=== PATIENT | female | born 1940 | race Two or more races ===

== ENCOUNTER 2019-07-23 11:38 | Emergency (ER) | payer MEDICARE, OTHER, SELFPAY ==
--- NOTE | ~2019-07-23 | XR_ITS ---
[[id number] ] INDICATION: Right rib pain after recent fall TECHNIQUE: Frontal projection of the upper right ribs, frontal projection of the lower right ribs, ob lique projection of all the right ribs, frontal inspiratory chest x-ray for interpretation. FINDINGS: There are no displaced rib fractures identified. There are no soft tissue abnormality see n. The lungs are clear. There is dextroscoliosis of the spine at the thoracolumbar junction. There are advanced degenerative changes of the shoulders. IMPRESSION: 1:No displaced rib fractures. Reviewed, dictated and finalized at location A.
[2019-07-23 11:47] VITALS: BP 143/77; PULSE 66; RESP 16; TEMP 36.6; O2SAT 98
--- NOTE | 2019-07-23 12:59 | ED.GENADULT ---
HPI - General Adult General Chief complaint: Fall Stated complaint: rib pain Time Seen by Provider: 07/23/19 12:59 Source: patient and RN notes reviewed Mode of arrival: ambulatory Limitations: no limitations History of Present Illness HPI narrative: 79-year-old female presents with complaint of right lateral rib cage pain status post fall for the past 14 days. Kamilla says she fell at home and did not seek treatment until now. Tylenol at home last this morning @10:30 with some relief. Denies difficulty breathing or cough. Denies hitting head or loss consciousness. No bruising area. No deformity. Exacerbating factors consist of taking a deep breath. Relieving factor consist of taking Tylenol and resting. Denies fever or chills. No cardiac chest pain, wheezing, or shortness of breath. Denies syncopal, abdominal pain, nausea, and vomiting. Tolerating po intake well. Remains active. Some parts of this dictation were generated by voice recognition software and may contain typographical and/or grammatical inaccuracies. Related Data Home Medications Medication Instructions Recorded Confirmed [place]-3 05/25/19 alendronate [Fosamax] 70 mg PO WEEKLY 05/25/19 05/25/19 amlodipine 5 mg PO DAILY 05/25/19 05/25/19 bimatoprost 1 drp OPHTHALMIC (EYE) DAILY 05/25/19 05/25/19 calcium carbonate [Calcium 500] 500 mg PO BID 05/25/19 05/25/19 cetirizine 5 mg PO DAILY 05/25/19 05/25/19 cyclosporine [Restasis] 1 drp OPHTHALMIC (EYE) Q12H 05/25/19 05/25/19 meloxicam 7.5 mg PO DAILY 05/25/19 05/25/19 multivitamin with minerals [Daily 1 tablet PO DAILY 05/25/19 05/25/19 Multivitamin-Minerals] levothyroxine 75 mcg tablet 75 mcg PO DAILY 05/26/19 Allergies Allergy/AdvReac Type Severity Reaction Status Date / Time codeine Allergy Unknown Other Verified 05/25/19 12:09 temazepam Allergy Unknown Rash Verified 05/25/19 12:09 Review of Systems Review of Systems: Narrative: CONSTITUTIONAL: Denies fever, chills, sweats. EYES: Denies visual changes, redness, discharge. ENT: Denies rhinorrhea, congestion, sore throat, otalgia. CARDIOVASCULAR: Denies chest pain, palpitations, edema. RESPIRATORY: Denies dyspnea, wheezing, cough. GASTROINTESTINAL: Denies abdominal pain, nausea, vomiting, diarrhea. GENITOURINARY: Denies dysuria, hematuria, abnormal discharge. SKIN: Denies rash or itching. MUSCULOSKELETAL: Denies acute back pain, joint pain. Complains of acute right lateral rib cage tenderness, myalgia. NEUROLOGIC: Denies numbness or focal weakness. PSYCHIATRIC: Denies anxiety or depression. All systems reviewed & are unremarkable except as noted in HPI and below. [facility] Past Medical History Medical History Anxiety Depression Essential (primary) hypertension Hyperlipidemia Hypothyroid Lump of left breast Memory change OAB (overactive bladder) Osteoporosis Surgical History Surgical History History of surgery on right wrist (~2003) Family History Family History Mother Family history of coronary artery disease Family history of cardiovascular disease, Onset Age: 71 Social History Social History (Updated 07/23/19 @ 13:05 by JONAS Scales) Smoking status: Never smoker Second hand tobacco smoke exposure: No Alcohol intake: never Substance use: never Living arrangements: alone Occupation/Education: retired Gender identity (if verbalized by the patient): Female Comments At time of signature, agree with nurse past medical, surgical, social, and family history. There is no relevant family history pertinent to the presenting complaint. Exam Narrative: Exam Narrative: GENERAL: This is a well-nourished, well-developed patient, in no apparent distress. Talks in full sentences and ambulates with steady gait without dyspnea. HEAD: normoceph
== END 2019-07-23 13:15 | disposition home or self-care (01) ==
PROVIDERS: Emergency Provider Nurse Practitioner Family; PCP Family Medicine
DX: S20.211A Contusion of right front wall of thorax, initial encounter (principal); W19.XXXA Unspecified fall, initial encounter; I10 Essential (primary) hypertension; E78.5 Hyperlipidemia, unspecified; E03.9 Hypothyroidism, unspecified; M81.0 Age-related osteoporosis without current pathological fracture
CPT/HCPCS: 71101; 99213; G0463

== ENCOUNTER 2019-09-04 10:54 | Outpatient (CLI) | payer MEDICARE, OTHER, SELFPAY ==
[2019-09-04 11:19] LABS: Hematocrit 41.6 % (37.0-47.0); Hemoglobin 13.9 g/dL (12.0-15.0); Mean Corpuscular HGB Conc 33.4 g/dl (32-36); Mean Corpuscular Hemoglobin 31.1 pg (26-34); Mean Corpuscular Volume 93.1 fl (80-100); Mean Platelet Volume 9.3 fl (7.4-10.4); Platelet Count Result 150 k/mm3 (150-375); Red Blood Count 4.47 M/mm3 (4.2-5.4); Red Cell Distribution Width 13.1 % (11.5-14.5)
[2019-09-04 11:49] LABS: LDL Cholesterol Direct 112 mg/dL
[2019-09-04 12:25] LABS: Alanine Aminotransferase 26 U/L (4-35); Albumin Level 4.4 g/dL (3.5-5.1); Alkaline Phosphatase 91 U/L (38-126); Aspartate Amino Transferase 36 U/L (14-36); Bilirubin,Total 0.3 mg/dL (0.2-1.3); Blood Urea Nitrogen 22 mg/dL (7-17); Calcium 9.2 mg/dL (8.4-10.2); Carbon Dioxide 28 mmol/L (22-30); Chloride 104 mmol/L (98-107); Cholesterol 189 mg/dL (0-200); Estimated Glomerular Filt Rate > 60; Glucose 108 mg/dL (65-105); Potassium 3.8 mmol/L (3.4-5.0); Sodium 139 mmol/L (137-145); Triglycerides 128 mg/dL (<150)
[2019-09-04 12:26] LABS: HDL Direct 41 mg/dL
== END 2019-09-04 10:55 | disposition home or self-care (01) ==
PROVIDERS: PCP Family Medicine; Visit Provider Nurse Practitioner Family
DX: I10 Essential (primary) hypertension (principal); R20.2 Paresthesia of skin
CPT/HCPCS: 36415; 80053; 80061; 82607; 85027

== ENCOUNTER 2019-09-12 13:50 | Outpatient (CLI) | payer MEDICARE, OTHER, SELFPAY ==
--- NOTE | ~2019-09-12 | MR_ITS ---
EXAMINATION: MR shoulder LT wo con DATE: 09/12/2019 14:54 INDICATION: Paresthesias of skin. Left upper and pain and numbness. TECHNIQUE: Magnetic resonance imaging (MRI) of the left shoulder was performed without intravenous co ntrast. Sequences included axial PD-weighted FS FSE, coronal oblique PD-weighted FS FSE and T2-weight ed FS FSE, and sagittal oblique T2-weighted FS FSE and T1-weighted FSE. COMPARISON: None. FINDINGS: Coracoacromial arch: The acromion undersurface is curved in morphology with anterior hook (type III). There is moderate ac romioclavicular joint osteoarthritis. There is severe subacromial/subdeltoid bursitis. Rotator cuff: There is an articular-sided partial-thickness tear of supraspinatus and infraspinous tendons measurin g 9 mm anterior to posterior by 16 mm proximal to distal by up to 70% tendon thickness. Teres minor t endon is normal. There is moderate subscapularis tendinopathy. There is fluid around the infraspinatu s muscle belly with increased signal at the myotendinous junction, consistent with mild (grade 1) str ain. There is mild fatty atrophy of supraspinatus and subscapularis muscle bellies. Biceps tendon and glenoid labrum: Biceps tendon is in bicipital groove. There is a partial tear of intra-articular biceps tendon. There is maceration of the glenoid labrum. Fluid: There is a small glenohumeral joint effusion. Bones/cartilage: There is extensive full-thickness cartilage loss of humeral head and glenoid with bone volume loss of humeral head and glenoid, subchondral cysts, and osteophytes. IMPRESSION: 1. Advanced glenohumeral joint osteoarthritis. 2. Partial-thickness, articular-sided tear of supraspinatus and infraspinatus tendons. Mild (grade 1) infraspinatus muscle strain. 3. Severe subacromial/subdeltoid bursitis. 4. Small glenohumeral joint effusion. 5. Partial tear of intra-articular biceps tendon. Reviewed, dictated and finalized at location A. IMPRESSION: 1. Advanced glenohumeral joint osteoarthritis. 2. Partial-thickness, articular-sided tear of supraspinatus and infraspinatus t endons. Mild (grade 1) infraspinatus muscle strain. 3. Severe subacromial/subdeltoid bursitis. 4. Small glenohumeral joint effusion. 5. Partial tear of intra-articular biceps tendon.
== END 2019-09-12 13:51 | disposition home or self-care (01) ==
PROVIDERS: PCP Family Medicine; Visit Provider Nurse Practitioner Family
DX: R20.2 Paresthesia of skin (principal); M19.012 Primary osteoarthritis, left shoulder; M75.112 Incomplete rotator cuff tear or rupture of left shoulder, not specified as traumatic; M75.52 Bursitis of left shoulder; M25.412 Effusion, left shoulder; S46.212A Strain of muscle, fascia and tendon of other parts of biceps, left arm, initial encounter
CPT/HCPCS: 73221

== ENCOUNTER 2019-12-05 12:24 | Outpatient (CLI) | payer MEDICARE, OTHER, SELFPAY ==
--- NOTE | ~2019-12-05 | MM_ITS ---
EXAMINATION: MM diagnostic richard LT w leonardo HISTORY: Follow-up left breast asymmetry TECHNIQUE: Additional 3-D tomosynthesis images of the left breast were performed and synthetic 2-D im ages were generated. CAD analysis was submitted and interpreted. COMPARISON: Comparison to multiple prior studies sequentially, with oldest reviewed study dated 01/08. BREAST PARENCHYMAL COMPOSITION: BREAST PARENCHYMAL COMPOSITION: There are scattered areas of fibroglandular density. FINDINGS: Focal asymmetry in the upper outer quadrant of the left breast is not significantly changed . There are benign-appearing left breast calcifications. There is a tissue marker in the upper outer quadrant from previous benign biopsy. IMPRESSION: 1. Stable left breast asymmetry, likely benign. 2. Recommend 6 month follow-up diagnostic bilateral mammogram BI-RADS category 3, probably benign findings. Reviewed, dictated and finalized at location A.
== END 2019-12-05 12:25 | disposition home or self-care (01) ==
PROVIDERS: PCP Family Medicine; Visit Provider Nurse Practitioner Family
DX: N60.02 Solitary cyst of left breast (principal); R92.8 Other abnormal and inconclusive findings on diagnostic imaging of breast
CPT/HCPCS: 77061; 77065; G0279

== ENCOUNTER 2020-01-26 13:51 | Outpatient (CLI) | payer MEDICARE, OTHER, SELFPAY ==
--- NOTE | ~2020-01-26 | XR_ITS ---
XR scoliosis survey DATE: 01/26/2020 14:31 INDICATION: Scoliosis TECHNIQUE: Standing AP and lateral views. Breast poole. COMPARISON: None FINDINGS: 11 degrees dextroscoliosis from T3 T7. 19 degrees levoscoliosis from T7 to T12. 50 degrees rotatory dextroscoliosis from T12 to L4. The left femoral head is 2.8 cm higher than the right femoral head. Diffuse osteopenia. There is particularly prominent degenerative disc disease of the cervical spine from C3-4 through C5- 6, moderate degenerative disc disease at C6-7. There is degenerative spurring of the thoracic and lumbar spine. The sacroiliac joints are intact. Prominent osteoarthritis at the glenohumeral joints. There is rotator cuff atrophy on the right. IMPRESSION: 11 degrees dextroscoliosis from T3 T7. 19 degrees levoscoliosis from T7 to T12. 50 degrees rotatory dextroscoliosis from T12 to L4 Reviewed, dictated and finalized at Location A. Reviewed, dictated and finalized at location A.
== END 2020-01-26 13:52 | disposition home or self-care (01) ==
LOC: ANHIMG 13:57
PROVIDERS: PCP Family Medicine; Visit Provider Family Medicine
DX: R26.89 Other abnormalities of gait and mobility (principal); M41.84 Other forms of scoliosis, thoracic region
CPT/HCPCS: 72082

== ENCOUNTER 2020-03-05 09:31 | Outpatient (CLI) | payer MEDICARE, OTHER, SELFPAY ==
[2020-03-05 09:52] LABS: Basophils Absolute Auto 0.1 K/mm3 (0.0-0.1); Basophils Percent Auto 1.1 % (0.2-1.2); Eosinophils Absolute Auto 0.1 K/mm3 (0-0.3); Eosinophils Percent Auto 2.2 % (0-4.4); Hemoglobin 14.3 g/dL (12.0-15.0); Immature Granulocyte Absolute 0.02 K/mm3 (0.00-0.031); Immature Granulocyte Percent A 0.4 % (0-0.5); Lymphocytes Absolute Auto 1.84 K/mm3 (0.9-3.2); Mean Corpuscular Hemoglobin 32.1 pg (26-34); Mean Corpuscular Volume 94.4 fl (80-100); Mean Platelet Volume 9.5 fl (7.4-10.4); Monocytes Absolute Auto 0.4 K/mm3 (0.1-0.6); Monocytes Percent Auto 8.1 % (2.6-8.5); Neutrophils Absolute Auto 2.9 K/mm3 (1.3-6.7); Neutrophils Percent Auto 54.2 % (45.5-73.1); Platelet Count Result 142 k/mm3 (150-375); Red Blood Count 4.45 M/mm3 (4.2-5.4); Red Cell Distribution Width 12.6 % (11.5-14.5); White Blood Count 5.4 K/mm3 (4.5-10.0)
[2020-03-05 10:04] LABS: Alanine Aminotransferase 28 U/L (4-35); Albumin Level 4.7 g/dL (3.5-5.1); Alkaline Phosphatase 96 U/L (38-126); Anion Gap 10 mmol/L (8-16); Aspartate Amino Transferase 38 U/L (14-36); Bilirubin,Total 0.3 mg/dL (0.2-1.3); Blood Urea Nitrogen 19 mg/dL (7-17); Calcium 9.8 mg/dL (8.4-10.2); Carbon Dioxide 28 mmol/L (22-30); Chloride 104 mmol/L (98-107); Cholesterol 197 mg/dL (0-200); Estimated Glomerular Filt Rate > 60; Glucose 103 mg/dL (65-105); HDL Direct 49 mg/dL; Potassium 4.1 mmol/L (3.4-5.0); Sodium 142 mmol/L (137-145); Triglycerides 155 mg/dL (<150)
[2020-03-05 10:15] LABS: LDL Cholesterol Direct 110 mg/dL
== END 2020-03-05 09:32 | disposition home or self-care (01) ==
LOC: ANHLAB 09:33
PROVIDERS: PCP Family Medicine; Visit Provider Family Medicine
DX: E78.5 Hyperlipidemia, unspecified (principal); I10 Essential (primary) hypertension; E03.9 Hypothyroidism, unspecified; Z00.00 Encounter for general adult medical examination without abnormal findings
CPT/HCPCS: 36415; 80053; 80061; 84443; 85025

== ENCOUNTER 2020-05-10 21:40 | Emergency (ER) | payer MEDICARE, OTHER, SELFPAY ==
--- NOTE | ~2020-05-10 | CT_ITS ---
EXAMINATION: CT brain wo con EXAM DATE: 05/10/2020 22:48 INDICATION: Fall, head injury, laceration. TECHNIQUE: Spiral CT of the head was performed without contrast. Axial, coronal and sagittal images were reviewed. The dose-length product (DLP) for this examination was 605.33 mGy-cm. The exposure w as tailored according to patient size, and iterative reconstruction (ASIR) was used as additional dos e reduction technique. Comparison is made to prior examination from 12/06/2008. FINDINGS: There is no acute intraparenchymal hemorrhage. No evidence of intraparenchymal brain mass lesion. No evidence of acute infarction. Please note that initial head CT has limited sensitivity f or small or acute infarctions. There is moderate periventricular and subcortical hypodensity, nonspec ific but probably related to small vessel ischemic disease. There is moderate prominence of the sul ci and ventricles related to cerebral atrophy. There is intracranial carotid arteriosclerosis. The re are no extra-axial collections. There is no mass effect or midline shift. Patient has had bilate ral ocular lens surgery. Left-sided scalp laceration and contusion. The visualized sinuses and masto id air cells are well aerated. IMPRESSION: 1. No acute intracranial findings. 2. Chronic age related findings. 3. Left-sided scalp laceration, contusion. Reviewed, dictated and finalized at location A. [employer]
[2020-05-10 21:49] VITALS: BP 149/69; PULSE 64; RESP 16; TEMP 36.3; O2SAT 95
--- NOTE | 2020-05-10 22:08 | ED.FALL ---
HPI - Fall General Chief Complaint: Fall Stated Complaint: head lac Time Seen by Provider: 05/10/20 22:07 History of Present Illness HPI Narrative: 80 yo female presents from home for falls. She reports that she fell twice this evening at home. In the second fall she struck the back of her head and sustained a significant laceration to the scalp. She believes that she was falling due to taking Trazodone. Related Data Home Medications Medication Instructions Recorded Confirmed [place]-3 05/25/19 04/22/20 bimatoprost 1 drp OPHTHALMIC (EYE) DAILY 05/25/19 04/22/20 cyclosporine [Restasis] 1 drp OPHTHALMIC (EYE) Q12H 05/25/19 04/22/20 multivitamin with minerals [Daily 1 tablet PO DAILY 05/25/19 04/22/20 Multivitamin-Minerals] calcium carbonate 600 mg calcium 1,200 mg PO DAILY tablet 03/04/20 04/22/20 (1,500 mg) tablet cholecalciferol (vitamin D3) 25 25 mcg PO DAILY 03/04/20 04/22/20 mcg (1,000 unit) tablet levothyroxine 75 mcg tablet 75 mcg PO DAILY 03/04/20 04/22/20 cetirizine 10 mg capsule 10 mg PO DAILY cap 04/22/20 04/22/20 clonazepam 0.5 mg tablet 0.5 mg PO DAILY PRN 04/22/20 04/22/20 Allergies Allergy/AdvReac Type Severity Reaction Status Date / Time codeine Allergy Unknown Other Verified 04/22/20 13:13 temazepam Allergy Unknown Rash Verified 04/22/20 13:13 Review of Systems Review of Systems: All systems reviewed & are unremarkable except as noted in HPI and below Constitutional: Constitutional: Denies fever(s) and Denies weakness Eyes: Eyes: Denies change in vision ENT: Denies dizziness Cardiovascular: Cardiovascular: Denies chest pain Respiratory: Respiratory: Denies dyspnea Gastrointestinal: Gastrointestinal: Denies nausea Musculoskeletal: Musculoskeletal: Denies back pain Neurologic: Denies confusion, Denies dizziness, Denies numbness and Denies weakness Hematologic/Lymphatic: Hematologic/Lymphatic: Denies easy bleeding and Denies easy bruising PMFSH Past Medical History Medical History Anxiety Depression Essential (primary) hypertension Hyperlipidemia Hypothyroid Insomnia Lump of left breast Memory change OAB (overactive bladder) Osteoporosis Surgical History Surgical History History of surgery on right wrist (~2003) Family History Family History Mother Family history of coronary artery disease Family history of cardiovascular disease, Onset Age: 71 Social History Social History Smoking status: Never smoker Second hand tobacco smoke exposure: No Alcohol intake: never Substance use: never Gender identity (if verbalized by the patient): Female Exam Const: General: no acute distress and alert Orientation/consciousness: patient oriented x3 HENMT: Head: laceration (10 cm posterior scalp) Eyes: Pupils: Equal, round and reactive pupils present Neck: Neck: normal visual inspection Resp: Effort & Inspection: normal respiratory effort Auscultation: clear to auscultation bilaterally Cardio: Rate: regular rate Rhythm: regular rhythm Skin: General skin exam: normal color Neuro: General: patient oriented x3, moves all extremities, no focal motor deficits and CN's II-XI intact bilaterally Speech: normal speech Gait exam (Neuro): Normal gait present Extrem: General: normal to inspection Course Vital Signs Vital signs: Vital Signs Temperature 36.3 C L 05/10/20 21:49 Pulse Rate 64 05/10/20 21:49 Respiratory Rate 16 05/10/20 21:49 Blood Pressure 149/69 H 05/10/20 21:49 Pulse Oximetry 95 05/10/20 21:49 Temperature 36.6 C 05/10/20 23:53 Pulse Rate 57 L 05/10/20 23:53 Respiratory Rate 16 05/10/20 23:53 Blood Pressure 185/92 H 05/10/20 23:53 Pulse Oximetry 98 05/10/20 23:53 Procedur
[2020-05-10] MEDS: LIDO 1%/EPINEPHRINE 1:100,000 20 ML VIAL INFILTRATE (23:49)
[2020-05-10 23:53] VITALS: BP 185/92; PULSE 57; RESP 16; TEMP 36.6; O2SAT 98
== END 2020-05-10 23:59 | disposition home or self-care (01) ==
PROVIDERS: Emergency Provider Emergency Medicine; PCP Family Medicine
DX: S01.01XA Laceration without foreign body of scalp, initial encounter (principal); I10 Essential (primary) hypertension; E78.5 Hyperlipidemia, unspecified; E03.9 Hypothyroidism, unspecified; M81.0 Age-related osteoporosis without current pathological fracture; N32.81 Overactive bladder; F41.9 Anxiety disorder, unspecified; F32.9 Major depressive disorder, single episode, unspecified; W19.XXXA Unspecified fall, initial encounter
CPT/HCPCS: 12004; 70450; 99284

== ENCOUNTER 2020-06-08 12:29 | Emergency (ER) | payer MEDICARE, OTHER, SELFPAY ==
[2020-06-08 12:45] VITALS: BP 146/75; PULSE 61; RESP 16; TEMP 36.6; O2SAT 97
[2020-06-08 12:46] VITALS: BP 146/75; PULSE 61; RESP 16; TEMP 36.6; O2SAT 97
--- NOTE | 2020-06-08 13:02 | ED.GENADULT ---
HPI - General Adult General Chief complaint: Urogenital-Female Stated complaint: POS UTI Source: patient Mode of arrival: ambulatory Limitations: no limitations History of Present Illness HPI narrative: Patient presents for evaluation of urinary symptoms. Symptom onset yesterday. She reports urinary frequency, hesitancy, and incomplete emptying. She denies any abdominal pain, fever, chills, nausea, vomiting. She has chronic low back pain, not worse as of late. She has had these symptoms in the past with a urinary tract infection. She is not diabetic. No additional complaints or concerns. Related Data Home Medications Medication Instructions Recorded Confirmed [place]-3 05/25/19 05/22/20 bimatoprost 1 drp OPHTHALMIC (EYE) DAILY 05/25/19 05/22/20 cyclosporine [Restasis] 1 drp OPHTHALMIC (EYE) Q12H 05/25/19 05/22/20 multivitamin with minerals [Daily 1 tablet PO DAILY 05/25/19 05/22/20 Multivitamin-Minerals] calcium carbonate 600 mg calcium 1,200 mg PO DAILY tablet 03/04/20 05/22/20 (1,500 mg) tablet cholecalciferol (vitamin D3) 25 25 mcg PO DAILY 03/04/20 05/22/20 mcg (1,000 unit) tablet levothyroxine 75 mcg tablet 75 mcg PO DAILY 03/04/20 05/22/20 cetirizine 10 mg capsule 10 mg PO DAILY cap 04/22/20 05/22/20 Allergies Allergy/AdvReac Type Severity Reaction Status Date / Time codeine Allergy Unknown Other Verified 05/22/20 11:16 temazepam Allergy Unknown Rash Verified 05/22/20 11:16 clonazepam Allergy Unknown Verified 06/08/20 12:46 zolpidem [From Ambien] Allergy Unknown Verified 06/08/20 12:46 Review of Systems Review of Systems: Narrative: CONSTITUTIONAL: Denies fever, chills, or sweats. EYES: Denies visual changes, redness, or discharge. ENT: Denies rhinorrhea, congestion, sore throat, or otalgia. CARDIOVASCULAR: Denies chest pain, palpitations, or edema. RESPIRATORY: Denies cough or dyspnea. GASTROINTESTINAL: Denies abdominal pain, nausea, vomiting, or diarrhea. GENITOURINARY: Reports urinary hesitancy, incomplete emptying, frequency. Denies dysuria. SKIN: Denies rash or itching. MUSCULOSKELETAL: Denies back pain, joint pain, or myalgia. NEUROLOGIC: Denies headache, numbness, dizziness, or weakness. PSYCHIATRIC: Denies anxiety or depression. [facility] Past Medical History Medical History Anxiety Depression Essential (primary) hypertension Hyperlipidemia Hypothyroid Insomnia Lump of left breast Memory change OAB (overactive bladder) Osteoporosis Surgical History Surgical History History of surgery on right wrist (~2003) Family History Family History Mother Family history of coronary artery disease Family history of cardiovascular disease, Onset Age: 71 Social History Social History Smoking status: Never smoker Second hand tobacco smoke exposure: No Alcohol intake: never Substance use: never Gender identity (if verbalized by the patient): Female Exam Narrative: Exam Narrative: GENERAL: Well-appearing, well-nourished, and in no acute distress. HEAD: Normocephalic, atraumatic. EYES: PERRLA and EOMI. ENT: Nares clear, no rhinorrhea or epistaxis. Mucous membranes moist. Oropharynx without tonsillar hypertrophy exudate or other lesions. Bilateral TMs pearly masterson nonbulging NECK: Supple. No adenopathy or masses. No carotid bruits or JVD CHEST: Clear to auscultation. No respiratory distress. No wheezes rales or rhonchi HEART: Regular rate and rhythm. No murmur heard. Normal peripheral pulses. ABDOMEN: Soft, nondistended, normal active bowel sounds. No abdominal tenderness. No CVA tenderness. EXTREMITIES: Normal range of motion. No edema. SKIN: Warm, dry, no rash. NEURO: No focal deficits. Alert and oriented x3. PSYCH: Normal m
== END 2020-06-08 14:19 | disposition home or self-care (01) ==
PROVIDERS: Emergency Provider Nurse Practitioner; PCP Family Medicine
DX: N30.01 Acute cystitis with hematuria (principal); I10 Essential (primary) hypertension; E78.5 Hyperlipidemia, unspecified; E03.9 Hypothyroidism, unspecified; M81.0 Age-related osteoporosis without current pathological fracture
CPT/HCPCS: 81003; 87077; 87086; 87088; 87186; 99213; G0463

== ENCOUNTER 2020-08-15 11:46 | Emergency (ER) | payer MEDICARE, OTHER, SELFPAY ==
--- NOTE | 2020-08-15 12:03 | ED.DENTAL ---
HPI - Dental/Oral General Chief complaint: Dental/Oral Stated complaint: mouth dry Time Seen by Provider: 08/15/20 12:04 Source: patient Mode of arrival: ambulatory Limitations: no limitations History of Present Illness HPI Narrative: Kamilla Crespo is an 80 yo female with a PMH of HTN osteopeia, zantac, hupothyroid, high cholesterol,urinary incontinence, comes to [facility] for complaints of dry mouth after receiving covid shot on 08/02. She is on somemeds that can cause dry moth but states she did not have it until the covid shot. Related Data Home Medications Medication Instructions Recorded Confirmed [place]-3 1 cap PO DAILY 05/25/19 08/15/20 bimatoprost 1 drp OPHTHALMIC (EYE) DAILY 05/25/19 08/15/20 cyclosporine [Restasis] 1 drp OPHTHALMIC (EYE) Q12H 05/25/19 08/15/20 multivitamin with minerals [Daily 1 tablet PO DAILY 05/25/19 08/15/20 Multivitamin-Minerals] calcium carbonate 600 mg calcium 1,200 mg PO DAILY tablet 03/04/20 08/15/20 (1,500 mg) tablet cholecalciferol (vitamin D3) 25 25 mcg PO DAILY 03/04/20 08/15/20 mcg (1,000 unit) tablet levothyroxine 75 mcg tablet 75 mcg PO DAILY 03/04/20 08/15/20 cetirizine 10 mg capsule 10 mg PO DAILY cap 04/22/20 08/15/20 Allergies Allergy/AdvReac Type Severity Reaction Status Date / Time codeine Allergy Unknown Other Verified 08/15/20 12:02 temazepam Allergy Unknown Rash Verified 08/15/20 12:02 clonazepam Allergy Unknown Verified 08/15/20 12:02 zolpidem [From Ambien] Allergy Unknown Verified 08/15/20 12:02 Review of Systems Review of Systems: Narrative: CONSTITUTIONAL: Denies fever, chills, sweats. EYES: Denies visual changes, redness, discharge. ENT: Denies rhinorrhea, congestion, sore throat, otalgia. CARDIOVASCULAR: Denies chest pain, palpitations, edema. RESPIRATORY: Denies dyspnea, wheezing, cough-dry mouth after Covid shot GASTROINTESTINAL: Denies abdominal pain, nausea, vomiting, diarrhea. GENITOURINARY: Denies dysuria, hematuria, abnormal discharge SKIN: Denies rash or itching. NEUROLOGIC: Denies numbness, or focal weakness. PSYCHIATRIC: Denies anxiety or depression. [facility] Past Medical History Medical History Anxiety Depression Essential (primary) hypertension Hyperlipidemia Hypothyroid Insomnia Lump of left breast Memory change OAB (overactive bladder) Osteoporosis Surgical History Surgical History History of surgery on right wrist (~2003) Family History Family History Mother Family history of coronary artery disease Family history of cardiovascular disease, Onset Age: 71 Social History Social History Smoking status: Never smoker Second hand tobacco smoke exposure: No Alcohol intake: never Substance use: never Gender identity (if verbalized by the patient): Female Comments At time of signature, I agree with nursing past medical, surgical, social and family history. There is no relevant family history pertinent to the presenting complaint. Exam Narrative: Exam Narrative: GENERAL: This is a well-nourished, well-developed patient, in mild distress. HEAD: normocephalic, atraumatic. EYES: Sclera clear/white. Vision is grossly intact. EARS: External ears normal. Hearing grossly intact. NOSE: External nose normal without nasal discharge, nares without redness, no rhinorrhea. THROAT: Mucous membranes appear dry, mild erythema, no cracking of lips NECK: Neck supple, non-tender CARDIOVASCULAR: Regular rate and rhythm without murmurs, gallops, or rubs. RESPIRATORY: Clear to auscultation. Breath sounds equal bilaterally. No wheezes, rales, or rhonchi. GASTROINTESTINAL: Abdomen soft, SKIN: warm, intact with no suspicious lesions or rash, good texture and turgor. NEURO: awake, alert, and oriented to
[2020-08-15 12:07] VITALS: BP 134/68; PULSE 68; RESP 16; TEMP 36.7; O2SAT 97
== END 2020-08-15 12:24 | disposition home or self-care (01) ==
PROVIDERS: Emergency Provider Nurse Practitioner; PCP Family Medicine
DX: R68.2 Dry mouth, unspecified (principal); F41.9 Anxiety disorder, unspecified; F32.9 Major depressive disorder, single episode, unspecified; I10 Essential (primary) hypertension; E78.5 Hyperlipidemia, unspecified; E03.9 Hypothyroidism, unspecified; M81.0 Age-related osteoporosis without current pathological fracture
CPT/HCPCS: 99213; G0463

== ENCOUNTER 2020-10-30 10:58 | Emergency (ER) | payer MEDICARE, OTHER, SELFPAY ==
[2020-10-30 11:05] VITALS: BP 158/85; PULSE 60; RESP 16; TEMP 36.9; O2SAT 98
--- NOTE | 2020-10-30 11:07 | ED.FEMALEGU ---
HPI - Female Genitourinary General Chief complaint: Urogenital-Female Stated complaint: uti symptoms Time Seen by Provider: 10/30/20 11:07 Source: patient, RN notes reviewed and old records reviewed Mode of arrival: ambulatory Limitations: no limitations History of Present Illness HPI Narrative: 80 year old female presents to [facility] with complaints of 1 week duration of pain with urination. Patient denies any associated pain to her lower back since having symptoms does have history of chronic lower back pain.Patient states some urgency, hesitancy and burning with urination, denies any suprapubic tenderness or any perineal discomfort. Patient admits to not drinking enough fluids lately denies any caffeine fluids daily such as coffee or tea or any carbonated beverages. Patient denies any nausea or vomiting or any diarrhea or constipation, denies any known fevers chills or sweats. MD elicited complaint: dysuria and UTI Pertinent past history: recurrent UTIs Onset (ago): week(s) (1) Vaginal discharge: none Vaginal bleeding: none Urinary symptoms: Dysuria Related Data Home Medications Medication Instructions Recorded Confirmed [place]-3 1 cap PO DAILY 05/25/19 08/21/20 bimatoprost 1 drp OPHTHALMIC (EYE) DAILY 05/25/19 08/21/20 cyclosporine [Restasis] 1 drp OPHTHALMIC (EYE) Q12H 05/25/19 08/21/20 multivitamin with minerals [Daily 1 tablet PO DAILY 05/25/19 08/21/20 Multivitamin-Minerals] calcium carbonate 600 mg calcium 1,200 mg PO DAILY tablet 03/04/20 08/21/20 (1,500 mg) tablet cholecalciferol (vitamin D3) 25 25 mcg PO DAILY 03/04/20 08/21/20 mcg (1,000 unit) tablet cetirizine 10 mg capsule 10 mg PO DAILY cap 04/22/20 08/21/20 Allergies Allergy/AdvReac Type Severity Reaction Status Date / Time codeine Allergy Unknown Other Verified 08/21/20 10:10 temazepam Allergy Unknown Rash Verified 08/21/20 10:10 clonazepam Allergy Unknown Verified 08/21/20 10:10 zolpidem [From Ambien] Allergy Unknown Verified 08/21/20 10:10 Review of Systems Review of Systems: Narrative: CONSTITUTIONAL: Denies fever, chills, or sweats. EYES: Denies visual changes, redness, or discharge. ENT: Denies rhinorrhea, congestion, sore throat, or otalgia. CARDIOVASCULAR: Denies chest pain, palpitations, or edema. RESPIRATORY: Denies cough or dyspnea. GASTROINTESTINAL: Denies abdominal pain, nausea, vomiting, or diarrhea. GENITOURINARY: Reports dysuria no visible hematuria, denies any suprapubic or perineal pain. SKIN: Denies rash or itching. MUSCULOSKELETAL: chronic lower back pain, joint pain, or myalgia. NEUROLOGIC: Denies headache, numbness, or weakness. PSYCHIATRIC: Positive history of anxiety or depression. All systems reviewed & are unremarkable except as noted in HPI and below PMFSH Past Medical History Medical History Anxiety Depression Essential (primary) hypertension Hyperlipidemia Hypothyroid Insomnia Lump of left breast Memory change OAB (overactive bladder) Osteoporosis Surgical History Surgical History History of surgery on right wrist (~2003) Family History Family History Mother Family history of coronary artery disease Family history of cardiovascular disease, Onset Age: 71 Social History Social History Smoking status: Never smoker Second hand tobacco smoke exposure: No Alcohol intake: never Substance use: never Gender identity (if verbalized by the patient): Female Comments At time of signature, agree with nursing past medical, surgical, social and family history. There is no relevant family history pertinent to the presenting complaint Exam Narrative: Exam Narrative: GENERAL: Well-appearing, well-nourished, and in no acute distress. HEAD: Normocephalic, atraumatic. E
== END 2020-10-30 12:46 | disposition home or self-care (01) ==
PROVIDERS: Emergency Provider Registered Nurse; PCP Family Medicine
DX: N39.0 Urinary tract infection, site not specified (principal); I10 Essential (primary) hypertension; E78.5 Hyperlipidemia, unspecified; E03.9 Hypothyroidism, unspecified; M81.0 Age-related osteoporosis without current pathological fracture
CPT/HCPCS: 81003; 87077; 87086; 87186; 99213; G0463

== ENCOUNTER 2021-02-27 11:54 | Outpatient (CLI) | payer MEDICARE, OTHER, SELFPAY ==
[2021-02-27 12:15] LABS: Basophils Percent Auto 0.6 % (0.2-1.2); Eosinophils Absolute Auto 0.1 K/mm3 (0-0.3); Eosinophils Percent Auto 1.5 % (0-4.4); Hematocrit 44.1 % (37.0-47.0); Hemoglobin 14.8 g/dL (12.0-15.0); Immature Granulocyte Absolute 0.02 K/mm3 (0.00-0.031); Immature Granulocyte Percent A 0.3 % (0-0.5); Lymphocytes Absolute Auto 1.62 K/mm3 (0.9-3.2); Lymphocytes Percent Auto 26.2 % (18.3-44.2); Mean Corpuscular HGB Conc 33.6 g/dl (32-36); Mean Corpuscular Hemoglobin 32.3 pg (26-34); Mean Corpuscular Volume 96.3 fl (80-100); Mean Platelet Volume 9.3 fl (7.4-10.4); Monocytes Absolute Auto 0.5 K/mm3 (0.1-0.6); Monocytes Percent Auto 7.8 % (2.6-8.5); Neutrophils Absolute Auto 3.9 K/mm3 (1.3-6.7); Neutrophils Percent Auto 63.6 % (45.5-73.1); Platelet Count Result 152 k/mm3 (150-375); Red Blood Count 4.58 M/mm3 (4.2-5.4); Red Cell Distribution Width 12.5 % (11.5-14.5); White Blood Count 6.2 K/mm3 (4.5-10.0)
[2021-02-27 12:28] LABS: Alanine Aminotransferase 29 U/L (4-35); Albumin Level 5.1 g/dL (3.5-5.1); Alkaline Phosphatase 82 U/L (38-126); Anion Gap 9 mmol/L (8-16); Aspartate Amino Transferase 41 U/L (14-36); Bilirubin,Total 0.3 mg/dL (0.2-1.3); Blood Urea Nitrogen 17 mg/dL (7-17); Calcium 10.3 mg/dL (8.4-10.2); Carbon Dioxide 29 mmol/L (22-30); Chloride 103 mmol/L (98-107); Cholesterol 194 mg/dL (0-200); Estimated Glomerular Filt Rate > 60; Glucose 104 mg/dL (65-110); HDL Direct 46 mg/dL; Potassium 4.2 mmol/L (3.4-5.0); Sodium 141 mmol/L (137-145); Triglycerides 136 mg/dL (<150)
[2021-02-27 12:39] LABS: LDL Cholesterol Direct 109 mg/dL
[2021-02-27 14:47] LABS: Free T4 Free Thyroxine 1.47 ng/mL (0.78-2.19)
[2021-03-03 09:13] LABS: Vitamin D 1,25 (OH)2 Total 64 pg/mL (18-72); Vitamin D2 1,25 (OH)2 <8 pg/mL; Vitamin D3 1,25 (OH)2 64 pg/mL
== END 2021-02-27 11:55 | disposition home or self-care (01) ==
LOC: ANHLAB 11:57
PROVIDERS: PCP Family Medicine; Visit Provider Family Medicine
DX: E78.2 Mixed hyperlipidemia (principal); E03.9 Hypothyroidism, unspecified; I10 Essential (primary) hypertension; E55.9 Vitamin D deficiency, unspecified
CPT/HCPCS: 36415; 80053; 80061; 82652; 84439; 84443; 85025

== ENCOUNTER 2021-10-23 23:41 | Emergency (ER) | payer MEDICARE, OTHER, SELFPAY ==
[2021-10-23 23:45] VITALS: BP 156/61; PULSE 52; RESP 18; TEMP 36.7; O2SAT 96
--- NOTE | 2021-10-24 01:48 | ED.GENADULT ---
HPI - General Adult General Chief complaint: Unspecified <Mariella Vazquez PA-C - Last Filed: 10/24/21 01:54> Stated complaint: trouble sleeping shaking after taking melatonin <SUZI Patel Last Filed: 10/24/21 01:54> Time Seen by Provider: 10/24/21 01:22 <Mariella Vazquez PA-C - Last Filed: 10/24/21 01:54> Source: patient <SUZI Patel Last Filed: 10/24/21 01:54> Mode of arrival: ambulatory <SUZI Patel Last Filed: 10/24/21 01:54> Limitations: no limitations <SUZI Patel Last Filed: 10/24/21 01:54> History of Present Illness HPI narrative: This is an 81-year-old female that presents to the emergency department for difficulty sleeping. Ongoing the last couple nights. Reports she ran out of her trazodone that she takes for sleep. She tried to take an [id number] melatonin but this made her feel shaky. Presents for a refill of her trazodone. No other concerns. <SUZI Patel Last Filed: 10/24/21 01:54> Related Data Home medications: Home Medications Medication Instructions Recorded Confirmed [place]-3 1 cap PO DAILY 05/25/19 03/09/21 bimatoprost 0.03 % eye drops 1 drp ophthalmic (eye) DAILY 05/25/19 03/09/21 cyclosporine 0.05 % eye drops in a 1 drp ophthalmic (eye) Q12H 05/25/19 03/09/21 dropperette (Restasis) multivitamin with minerals (Daily 1 tablet PO DAILY 05/25/19 03/09/21 Multivitamin-Minerals tablet) calcium carbonate 600 mg calcium 1,200 mg PO DAILY 03/04/20 03/09/21 (1,500 mg) tablet cholecalciferol (vitamin D3) 25 25 mcg PO DAILY 03/04/20 03/09/21 mcg (1,000 unit) tablet potassium chloride 10 mEq 10 meq PO DAILY 11/26/20 03/09/21 tablet,extended release(part/cryst) <Mariella Vazquez PA-C - Last Filed: 10/24/21 01:54> Allergies/adverse reactions: Allergies Allergy/AdvReac Type Severity Reaction Status Date / Time codeine Allergy Unknown Other Verified 02/27/21 10:56 temazepam Allergy Unknown Rash Verified 02/27/21 10:56 clonazepam Allergy Unknown Verified 02/27/21 10:56 zolpidem [From Ambien] Allergy Unknown Verified 02/27/21 10:56 <Mariella Vazquez PA-C - Last Filed: 10/24/21 01:54> Review of Systems Review of Systems: CONSTITUTIONAL: Denies fever PSYCHIATRIC: Denies anxiety or depression. <Mariella Vazquez PA-C - Last Filed: 10/24/21 01:54> All systems reviewed & are unremarkable except as noted in HPI and below <Mariella Vazquez PA-C - Last Filed: 10/24/21 01:54> [facility] Past Medical History Medical History: Medical History Alzheimer's dementia Anxiety Depression Essential (primary) hypertension Hyperlipidemia Hypothyroid Insomnia Lump of left breast Memory change OAB (overactive bladder) Osteoporosis Shoulder arthritis <Mariella Vazquez PA-C - Last Filed: 10/24/21 01:54> Surgical History Surgical History: Surgical History History of surgery on right wrist (~2003) <Mariella Vazquez PA-C - Last Filed: 10/24/21 01:54> Family History Family History: Family History Mother Family history of coronary artery disease Family history of cardiovascular disease, Onset Age: 71 <SUZI Patel Last Filed: 10/24/21 01:54> Social History Social History: Social History Social History: Smoking status: Never smoker Second hand tobacco smoke exposure: No Alcohol intake: never Substance use: never Substance use type: does not use Gender identity (if verbalized by the patient): Female Sexual Orientation (if Verbalized by the Patient): Straight or Heterosexual <Mariella Vazquez PA-C - Last Filed: 10/24/21 01:54> Exam Narrative: GENERAL: Well-appearing, well-nourished,
[2021-10-24 02:14] VITALS: BP 161/79; PULSE 73; RESP 16; O2SAT 95
== END 2021-10-24 02:39 | disposition home or self-care (01) ==
PROVIDERS: Emergency Provider Emergency Medicine; PCP Family Medicine
DX: G47.00 Insomnia, unspecified (principal); G30.9 Alzheimer's disease, unspecified; F02.80 Dementia in other diseases classified elsewhere, unspecified severity, without behavioral disturbance, psychotic disturbance, mood disturbance, and anxiety; I10 Essential (primary) hypertension; E78.5 Hyperlipidemia, unspecified; E03.9 Hypothyroidism, unspecified
CPT/HCPCS: 99283

== ENCOUNTER 2021-10-28 15:57 | Outpatient (CLI) | payer MEDICARE, OTHER, SELFPAY ==
[2021-10-28 16:44] LABS: Basophils Absolute Auto 0.1 K/mm3 (0.0-0.1); Basophils Percent Auto 0.8 % (0.2-1.2); Eosinophils Absolute Auto 0.1 K/mm3 (0-0.3); Eosinophils Percent Auto 1.8 % (0-4.4); Hematocrit 42.5 % (37.0-47.0); Hemoglobin 14.9 g/dL (12.0-15.0); Immature Granulocyte Absolute 0.02 K/mm3 (0.00-0.031); Immature Granulocyte Percent A 0.3 % (0-0.5); Lymphocytes Absolute Auto 1.87 K/mm3 (0.9-3.2); Lymphocytes Percent Auto 23.6 % (18.3-44.2); Mean Corpuscular HGB Conc 35.1 g/dl (32-36); Mean Corpuscular Hemoglobin 32.7 pg (26-34); Mean Corpuscular Volume 93.2 fl (80-100); Mean Platelet Volume 9.7 fl (7.4-10.4); Monocytes Absolute Auto 0.7 K/mm3 (0.1-0.6); Monocytes Percent Auto 8.8 % (2.6-8.5); Neutrophils Absolute Auto 5.1 K/mm3 (1.3-6.7); Neutrophils Percent Auto 64.7 % (45.5-73.1); Platelet Count Result 175 k/mm3 (150-375); Red Blood Count 4.56 M/mm3 (4.2-5.4); Red Cell Distribution Width 12.9 % (11.5-14.5); White Blood Count 7.9 K/mm3 (4.5-10.0)
[2021-10-28 17:08] LABS: Alanine Aminotransferase 35 U/L (6-35); Albumin Level 5.1 g/dL (3.5-5.1); Alkaline Phosphatase 97 U/L (38-126); Anion Gap 8 mmol/L (8-16); Aspartate Amino Transferase 44 U/L (14-36); Bilirubin,Total 0.3 mg/dL (0.2-1.3); Blood Urea Nitrogen 19 mg/dL (7-17); Calcium 9.6 mg/dL (8.4-10.2); Carbon Dioxide 28 mmol/L (22-30); Chloride 102 mmol/L (98-107); Cholesterol 198 mg/dL (0-200); Estimated Glomerular Filt Rate > 60; Glucose 107 mg/dL (65-110); HDL Direct 46 mg/dL; Potassium 4.3 mmol/L (3.4-5.0); Sodium 138 mmol/L (137-145); Triglycerides 223 mg/dL (<150)
[2021-10-28 17:19] LABS: LDL Cholesterol Direct 98 mg/dL
[2021-10-28 17:24] LABS: Free T4 Free Thyroxine 1.39 ng/mL (0.78-2.19)
[2021-10-28 17:38] LABS: Total Triiodothyronine (T3) 0.95 NG/ML (0.97-1.69)
[2021-10-28 18:15] LABS: Folic Acid > 20.0 ng/mL (2.76->20)
[2021-10-28 18:42] LABS: Erythrocyte Sedimentation Rate 18 mm/hr (0-20)
== END 2021-10-28 15:58 | disposition home or self-care (01) ==
LOC: ANHLAB 16:00
PROVIDERS: PCP Family Medicine; Visit Provider Family Medicine
DX: E78.2 Mixed hyperlipidemia (principal); R51.9 Headache, unspecified; E03.9 Hypothyroidism, unspecified; I10 Essential (primary) hypertension; R26.81 Unsteadiness on feet
CPT/HCPCS: 36415; 80053; 80061; 82607; 82746; 84439; 84443; 84480; 85025; 85652

== ENCOUNTER 2022-05-27 11:57 | Outpatient (CLI) | payer MEDICARE, OTHER, SELFPAY ==
--- NOTE | ~2022-05-27 | CT_ITS ---
EXAMINATION: CT brain wo con INDICATION: Head injury COMPARISON: 05/10/2020 TECHNIQUE: Standard unenhanced head CT. The dose-length product (DLP) was 529.67 mGy-cm. The mA was a djusted according to patient size. Iterative reconstruction technique was employed. FINDINGS: There is no acute intraparenchymal hemorrhage. No evidence of mass lesion. No evidence of a cute infarction. There is mild periventricular and subcortical hypodensity probably related to small vessel ischemic disease. There is mild prominence of the sulci and ventricles related to cerebral atr ophy. Intracranial calcified cerebral atherosclerosis is noted. There are no extra-axial collections. There is no mass effect or midline shift. The orbits and soft tissues are unremarkable. There is a s mall right mastoid effusion. IMPRESSION: 1. No acute intracranial abnormality. 2. Age related findings. Reviewed, dictated and finalized at location B. GATOR AND STERILIZER
--- NOTE | ~2022-05-27 | XR_ITS ---
EXAMINATION: XR humerus RT INDICATION: Right arm pain TECHNIQUE: Two views of the right humerus are obtained. COMPARISON: 09/08/2016 FINDINGS: There is advanced osteoarthritis of the glenohumeral joint with interval worsening since e comparison examination. There is moderate osteoarthritis at the acromioclavicular joint. No fractur e is identified. IMPRESSION: 1. 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 No acute findings. Reviewed, dictated and finalized at location B. BIOLOGIST
--- NOTE | ~2022-05-27 | XR_ITS ---
EXAMINATION: XR knee RT 3V DATE: 05/27/2022 12:58 INDICATION: Right knee pain TECHNIQUE: Three views of the right knee were obtained. COMPARISON: None. FINDINGS: Alignment is normal. No fracture or osteochondral lesion. There is moderate tricompartmenta l osteoarthritis. A small joint effusion is present. Calcified atherosclerosis is noted. IMPRESSION: 1. Moderate tricompartmental osteoarthritis. Reviewed, dictated and finalized at location B. UARD LACE WEAVER
[2022-05-27 12:55] LABS: Basophils Absolute Auto 0.1 K/mm3 (0.0-0.1); Basophils Percent Auto 0.7 % (0.2-1.2); Eosinophils Absolute Auto 0.1 K/mm3 (0-0.3); Eosinophils Percent Auto 1.6 % (0-4.4); Hematocrit 41.5 % (37.0-47.0); Hemoglobin 14.1 g/dL (12.0-15.0); Immature Granulocyte Absolute 0.02 K/mm3 (0.00-0.031); Immature Granulocyte Percent A 0.3 % (0-0.5); Immature Platelet Fraction Pct 2.5 % (0.9-11.2); Lymphocytes Absolute Auto 1.49 K/mm3 (0.9-3.2); Lymphocytes Percent Auto 21.5 % (18.3-44.2); Mean Corpuscular Hemoglobin 32.5 pg (26-34); Mean Corpuscular Volume 95.6 fl (80-100); Mean Platelet Volume 9.8 fl (7.4-10.4); Monocytes Absolute Auto 0.6 K/mm3 (0.1-0.6); Monocytes Percent Auto 8.1 % (2.6-8.5); Neutrophils Absolute Auto 4.7 K/mm3 (1.3-6.7); Neutrophils Percent Auto 67.8 % (45.5-73.1); Platelet Count Result 151 k/mm3 (150-375); Red Blood Count 4.34 M/mm3 (4.2-5.4); Red Cell Distribution Width 12.9 % (11.5-14.5); White Blood Count 6.9 K/mm3 (4.5-10.0)
[2022-05-27 13:05] LABS: Alanine Aminotransferase 30 U/L (6-35); Albumin Level 4.3 g/dL (3.5-5.1); Alkaline Phosphatase 87 U/L (38-126); Anion Gap 6 mmol/L (8-16); Aspartate Amino Transferase 48 U/L (14-36); Bilirubin,Total 0.6 mg/dL (0.2-1.3); Blood Urea Nitrogen 17 mg/dL (7-17); Calcium 9.3 mg/dL (8.4-10.2); Carbon Dioxide 28 mmol/L (22-30); Chloride 104 mmol/L (98-107); Estimated Glomerular Filt Rate > 60; Glucose 96 mg/dL (65-110); Potassium 3.9 mmol/L (3.4-5.0); Sodium 138 mmol/L (137-145)
[2022-05-27 13:36] LABS: Total Triiodothyronine (T3) 0.83 NG/ML (0.97-1.69)
== END 2022-05-27 11:58 | disposition home or self-care (01) ==
PROVIDERS: PCP Family Medicine; Visit Provider Nurse Practitioner Gerontology
DX: E78.2 Mixed hyperlipidemia (principal); F41.1 Generalized anxiety disorder; F51.04 Psychophysiologic insomnia; I10 Essential (primary) hypertension; N39.0 Urinary tract infection, site not specified; R26.81 Unsteadiness on feet; R41.0 Disorientation, unspecified; R29.6 Repeated falls; M17.11 Unilateral primary osteoarthritis, right knee; S09.90XA Unspecified injury of head, initial encounter; E03.9 Hypothyroidism, unspecified; X58.XXXA Exposure to other specified factors, initial encounter; M79.631 Pain in right forearm
CPT/HCPCS: 36415; 70450; 73060; 73562; 80053; 84439; 84443; 84480; 85025; 85055

== ENCOUNTER 2022-05-29 12:25 | Outpatient (NON) | payer MEDICARE, OTHER, SELFPAY ==
[2022-05-29 12:44] LABS: Appearance Urine Clear (Clear); Bilirubin Urine Negative (Negative); Blood Urine Negative (Negative); Color Urine Yellow (Yellow); Glucose Urine UA Negative (Negative); Ketones Urine Negative (Negative); Leukocyte Esterase Ur 2+ LEU/UL (Negative); Nitrate Urine Negative (Negative); Protein Urine Negative (Negative); Urobilinogen Urine 0.2 mg/dL (<2.0); pH Urine 6.5 (5.0-9.0)
[2022-05-29 12:50] LABS: Bacteria Urine Trace /hpf; Calcium Oxalate Crystals Urine Many /hpf; Mucus Urine Rare /lpf; Squamous Epithelial Cell Urine Occasional /hpf (Few); WBC Urine 21-30 /hpf
[2022-05-29 12:53] LABS: Add Urine Microscopic? YES
== END 2022-05-29 12:26 | disposition home or self-care (01) ==
PROVIDERS: PCP Family Medicine; Visit Provider Nurse Practitioner Gerontology
DX: R30.0 Dysuria (principal); R26.81 Unsteadiness on feet; N39.0 Urinary tract infection, site not specified; F41.1 Generalized anxiety disorder; R41.0 Disorientation, unspecified; F51.04 Psychophysiologic insomnia; I10 Essential (primary) hypertension; E03.9 Hypothyroidism, unspecified
CPT/HCPCS: 81001; 87086; 87088

== ENCOUNTER 2022-09-23 13:28 | Outpatient (CLI) | payer MEDICARE, OTHER, SELFPAY ==
--- NOTE | ~2022-09-23 | XR_ITS ---
EXAM: XR foot LT min 3V DATE: 09/23/2022 13:52 HISTORY: PAIN IN ARCH OF FOOT WHEN WALKING X2 WKS . COMPARISON: 04/20/2012. FINDINGS: Decreased mineralization. Old healed fractures of the second and third distal metatarsals. Old fracture fragments at the proximal aspect of the fourth and fifth proximal phalanges. No acute f racture or dislocation. No lytic or blastic lesion. Joint spaces are maintained. No erosion or perios teal change. Scattered vascular calcifications. Dystrophic calcification over the proximal plantar fa scia. IMPRESSION: Osteopenia. Proximal plantar fascia calcifications may suggest the presence of plantar fa sciitis. Reviewed, dictated and finalized at location K. IMPRESSION: Osteopenia. Proximal plantar fascia calcifications may suggest the presence of plantar fasciitis.
== END 2022-09-23 13:29 | disposition home or self-care (01) ==
PROVIDERS: PCP Family Medicine; Visit Provider Nurse Practitioner Gerontology
DX: M85.872 Other specified disorders of bone density and structure, left ankle and foot (principal); M72.2 Plantar fascial fibromatosis
CPT/HCPCS: 73630

== ENCOUNTER 2022-09-30 11:04 | Emergency (ER) | payer MEDICARE, OTHER, SELFPAY ==
--- NOTE | ~2022-09-30 | XR_ITS ---
EXAMINATION: XR ankle LT min 3V DATE: 09/30/2022 12:24 INDICATION: Left ankle swelling. TECHNIQUE: 4 views of left ankle were obtained. COMPARISON: None. FINDINGS: Bone alignment is normal. No fracture. Joint spaces are normal. There is ankle soft tissue swelling. IMPRESSION: 1. No fracture. Reviewed, dictated and finalized at location A. IMPRESSION: 1. No fracture.
[2022-09-30 11:07] VITALS: BP 150/77; PULSE 67; RESP 16; TEMP 37.1; O2SAT 98
--- NOTE | 2022-09-30 12:17 | ED.EXTPRO ---
HPI - Extremity Problem General Chief complaint: Extremity Problem,Nontraumatic Stated complaint: left foot problem Time Seen by Provider: 09/30/22 12:01 History of Present Illness HPI Narrative: Patient is an 82-year-old female presenting with left ankle swelling. Patient states that she has been having pain in her left foot for several weeks. She was diagnosed with planter fasciitis at that time and started using Voltaren gel and an iced water bottle. Patient states that this morning as she was getting out of bed she heard a popping sound in her left ankle and then it looked swollen. States that it hurts to stand on it. She denies any trauma. Denies numbness or weakness. Denies further complaints. Related Data Home Medications Medication Instructions Recorded Confirmed [place]-3 1 cap PO DAILY 05/25/19 09/23/22 bimatoprost 0.03 % eye drops 1 drp ophthalmic (eye) DAILY 05/25/19 09/23/22 cyclosporine 0.05 % eye drops in a 1 drp ophthalmic (eye) Q12H 05/25/19 09/23/22 dropperette (Restasis) multivitamin with minerals (Daily 1 tablet PO DAILY 05/25/19 09/23/22 Multivitamin-Minerals tablet) cholecalciferol (vitamin D3) 25 25 mcg PO DAILY 03/04/20 09/23/22 mcg (1,000 unit) tablet Allergies Allergy/AdvReac Type Severity Reaction Status Date / Time codeine Allergy Unknown Other Verified 09/30/22 11:16 temazepam Allergy Unknown Rash Verified 09/30/22 11:16 clonazepam Allergy Unknown Verified 09/30/22 11:16 zolpidem [From Ambien] Allergy Unknown Verified 09/30/22 11:16 Review of Systems Review of Systems: All systems reviewed & are unremarkable except as noted in HPI and below PMFSH Past Medical History Medical History Acute UTI Allergic contact dermatitis due to plants, except food Alzheimer's dementia Anxiety Anxiety disorder, unspecified Cellulitis of right lower extremity Chronic bilateral low back pain without sciatica Depression Dry mouth Elevated blood sugar Essential (primary) hypertension Essential (primary) hypertension Hyperlipidemia Hypothyroid Infected insect bite or sting Insomnia Left flank pain Leg cramps Lump of left breast Medicare annual wellness visit, subsequent Memory change OAB (overactive bladder) Osteoporosis Other specified depressive episodes Postmenopausal Pulmonary nodule Pyelonephritis Shoulder arthritis Surgical History Surgical History History of surgery on right wrist (~2003) Family History Family History Mother Family history of coronary artery disease Family history of cardiovascular disease, Onset Age: 71 Social History Social History Social History: Smoking status: Never smoker Second hand tobacco smoke exposure: No Alcohol intake: never Substance use: never Substance use type: does not use Living arrangements: alone Occupation/Education: retired Gender identity (if verbalized by the patient): Female Sexual Orientation (if Verbalized by the Patient): Straight or Heterosexual Exam Narrative: GENERAL: Well-appearing, well-nourished, and in no acute distress. HEAD: Normocephalic, atraumatic. EYES: PERRLA and EOMI. ENT: Nares clear, no rhinorrhea or epistaxis. Mucous membranes moist. NECK: Supple. CHEST: No respiratory distress. HEART: Regular rate and rhythm ABDOMEN: nondistended EXTREMITIES: Normal range of motion. mild circumferential edema of left ankle without significant tenderness, no erythema, ROM intact, DP/PT pulses 2+, no sensory deficits, no swelling of calves SKIN: Warm, dry, no rash. NEURO: No focal deficits. Alert and oriented x3. PSYCH: Normal mood and affect. Course Vital Signs Vital signs: Vital Signs Temperature 98.7 F 09/30/22 11:07 Pulse Rate 67 0
[2022-09-30] MEDS: ACETAMINOPHEN 500 MG TABLET 1000 MG PO (12:22)
--- NOTE | 2022-09-30 13:36 | PC.NURSE ---
patient able to walk to bathroom with steady gait.
== END 2022-09-30 13:47 | disposition home or self-care (01) ==
PROVIDERS: Emergency Provider Emergency Medicine; PCP Family Medicine
DX: M25.472 Effusion, left ankle (principal); M25.572 Pain in left ankle and joints of left foot; E78.5 Hyperlipidemia, unspecified; I10 Essential (primary) hypertension; E03.9 Hypothyroidism, unspecified; F41.9 Anxiety disorder, unspecified; F32.A Depression, unspecified; G30.9 Alzheimer's disease, unspecified; F02.80 Dementia in other diseases classified elsewhere, unspecified severity, without behavioral disturbance, psychotic disturbance, mood disturbance, and anxiety
CPT/HCPCS: 73610; 99283; A9270

== ENCOUNTER 2022-10-04 05:13 | Emergency (ER) | payer MEDICARE, OTHER, SELFPAY ==
[2022-10-04] VITALS (18 sets, daily range): BP systolic 123–183; BP diastolic 68–87; PULSE 55–69; RESP 13–28; TEMP 36.2–36.7; O2SAT 99
--- NOTE | ~2022-10-04 | CT_ITS ---
EXAMINATION: CT brain wo con INDICATION: Headache COMPARISON: 05/27/2022 TECHNIQUE: Standard unenhanced head CT. The dose-length product (DLP) was 605.33 mGy-cm. The mA was a djusted according to patient size. Iterative reconstruction technique was employed. FINDINGS: There is no acute intraparenchymal hemorrhage. No evidence of mass lesion. No evidence of a cute infarction. There is mild periventricular and subcortical hypodensity probably related to small vessel ischemic disease. There is mild prominence of the sulci and ventricles related to cerebral atr ophy. Intracranial calcified cerebral atherosclerosis is noted. There are no extra-axial collections. There is no mass effect or midline shift. Changes in the globes are likely from ocular lens surgery. There is a small right mastoid effusion. IMPRESSION: 1. No acute intracranial abnormality. 2. Age related findings. Reviewed, dictated and finalized at location A.
--- NOTE | ~2022-10-04 | CT_ITS ---
EXAMINATION: CT cervical spine wo con DATE: 10/04/2022 07:00 INDICATION: Head injury TECHNIQUE: Computed tomography (CT) of the cervical spine was performed without intravenous contrast. The dose-length product (DLP) was 126.20 mGy-cm. Automated exposure control and iterative reconstruc tion technique were employed. COMPARISON: 10/16/2015 FINDINGS: There are 2 mm of retrolisthesis of C3 on C4. There are 2 mm of anterolisthesis of C7 on T1 . The vertebral body heights are maintained. There is severe loss of intervertebral disc space height throughout the cervical spine. The odontoid process is intact. There is multilevel severe facet and uncovertebral joint osteoarthritis. IMPRESSION: 1. Severe cervical spondylosis without acute findings. Reviewed, dictated and finalized at location A.
--- NOTE | ~2022-10-04 | CT_ITS ---
EXAMINATION: CT chest abdomen pelvis w con DATE: 10/04/2022 07:08 INDICATION: Right-sided chest and abdominal pain after fall TECHNIQUE: Transaxial computed tomographic images of the chest, abdomen, and pelvis were obtained aft er the administration of 100 cc of Omnipaque 350 intravenous contrast. The dose-length product (DLP) was 355.19 mGy-cm. Automated exposure control and iterative reconstruction technique were employed. COMPARISON: 10/14/2018 FINDINGS: CHEST CT: There is mild dependent atelectasis. The lungs are free of focal airspace opacities. No pleural effus ion or pneumothorax. Cardiomegaly is noted. There are no pathologically enlarged thoracic lymph nodes . There is advanced osteoarthritis of the glenohumeral joints. There are acute anteromedial fractures of the right second, third, and fourth ribs. ABDOMEN/PELVIS CT: The liver, spleen, pancreas, gallbladder, and adrenal glands are normal. The left kidney is unremarka ble. There is a 2.1 cm cyst of the right kidney. There is calcified atherosclerosis of the aorta and many of the other arteries. No pathologically enlarged abdominal or pelvic lymph nodes are identified . No free intraperitoneal gas or evidence of bowel obstruction. There is severe lumbar spondylosis. A gain noted are chronic sacral insufficiency fractures and chronic nonunited fractures at the bilatera l pubic bodies. IMPRESSION: 1. Acute anteromedial fractures of the right second, third, and fourth ribs. No additional acute abno rmality of the chest, abdomen, or pelvis. Reviewed, dictated and finalized at location A. IMPRESSION: 1. Acute anteromedial fractures of the right second, third, and fourth ribs. No additional acute abnormality of the chest, abdomen, or pelvis.
--- NOTE | ~2022-10-04 | XR_ITS ---
EXAMINATION: XR elbow RT min 3V INDICATION: Right elbow pain TECHNIQUE: Four views of the right elbow are obtained. COMPARISON: None available FINDINGS: The bones are osteopenic which limits the sensitivity for fracture however none is seen. Th ere is mild osteoarthritis. Posterior soft tissue swelling is present. IMPRESSION: 1. No acute osseous abnormality, sensitivity limited by osteopenia. Reviewed, dictated and finalized at location A.
--- NOTE | 2022-10-04 06:14 | ED.GENADULT ---
HPI - General Adult General Chief complaint: Fall <Rajeev Justice MD - Last Filed: 10/04/22 06:18> Stated complaint: fall <Rajeev Justice MD - Last Filed: 10/04/22 06:18> Time Seen by Provider: 10/04/22 05:27 <Rajeev Justice MD - Last Filed: 10/04/22 06:18> History of Present Illness HPI narrative: Patient 82-year-old female who presents the emergency department with chief complaint of fall. Patient reports that yesterday she fell and struck her right elbow and her right side of her body on the ground. The patient also reports she has pain in her left hip area. Patient reports the pain is worse with movement reports whenever she tries to bend over the pain becomes excruciating. The patient reports no loss of consciousness denies being on anticoagulants. Patient reports she has a large bruise in her right elbow <Rajeev Justice MD - Last Filed: 10/04/22 06:18> Related Data Home medications: Home Medications Medication Instructions Recorded Confirmed [place]-3 1 cap PO DAILY 05/25/19 09/23/22 bimatoprost 0.03 % eye drops 1 drp ophthalmic (eye) DAILY 05/25/19 09/23/22 cyclosporine 0.05 % eye drops in a 1 drp ophthalmic (eye) Q12H 05/25/19 09/23/22 dropperette (Restasis) multivitamin with minerals (Daily 1 tablet PO DAILY 05/25/19 09/23/22 Multivitamin-Minerals tablet) cholecalciferol (vitamin D3) 25 25 mcg PO DAILY 03/04/20 09/23/22 mcg (1,000 unit) tablet <Rajeev Justice MD - Last Filed: 10/04/22 06:18> Allergies/adverse reactions: Allergies Allergy/AdvReac Type Severity Reaction Status Date / Time codeine Allergy Unknown Other Verified 10/04/22 05:27 temazepam Allergy Unknown Rash Verified 10/04/22 05:27 clonazepam Allergy Unknown Verified 10/04/22 05:27 zolpidem [From Ambien] Allergy Unknown Verified 10/04/22 05:27 <Rajeev Justice MD - Last Filed: 10/04/22 06:18> Review of Systems Review of Systems: A 10 system review of systems was completed on the patient and is negative except for what is stated in the HPI. Nursing and ancillary documentation was reviewed. <Rajeev Justice MD - Last Filed: 10/04/22 06:18> [facility] Past Medical History Medical History: Medical History Acute UTI Allergic contact dermatitis due to plants, except food Alzheimer's dementia Anxiety Anxiety disorder, unspecified Cellulitis of right lower extremity Chronic bilateral low back pain without sciatica Depression Dry mouth Elevated blood sugar Essential (primary) hypertension Essential (primary) hypertension Hyperlipidemia Hypothyroid Infected insect bite or sting Insomnia Left flank pain Leg cramps Lump of left breast Medicare annual wellness visit, subsequent Memory change OAB (overactive bladder) Osteoporosis Other specified depressive episodes Postmenopausal Pulmonary nodule Pyelonephritis Shoulder arthritis <Rajeev Justice MD - Last Filed: 10/04/22 06:18> Surgical History Surgical History: Surgical History History of surgery on right wrist (~2003) <Rajeev Justice MD - Last Filed: 10/04/22 06:18> Family History Family History: Family History Mother Family history of coronary artery disease Family history of cardiovascular disease, Onset Age: 71 <Rajeev Justice MD - Last Filed: 10/04/22 06:18> Social History Social History: Social History Social History: Smoking status: Never smoker Second hand tobacco smoke exposure: No Alcohol intake: never Substance use: never Substance use type: does not use Living arrangements: alone Occupation/Education: retired Gender identity (if v
[2022-10-04 06:21] LABS: Basophils Absolute Auto 0.1 K/mm3 (0.0-0.1); Basophils Percent Auto 0.7 % (0.2-1.2); Eosinophils Absolute Auto 0.2 K/mm3 (0-0.3); Eosinophils Percent Auto 2.3 % (0-4.4); Hematocrit 41.1 % (37.0-47.0); Hemoglobin 14.2 g/dL (12.0-15.0); Immature Granulocyte Absolute 0.02 K/mm3 (0.00-0.031); Immature Granulocyte Percent A 0.3 % (0-0.5); Lymphocytes Absolute Auto 1.68 K/mm3 (0.9-3.2); Lymphocytes Percent Auto 24.1 % (18.3-44.2); Mean Corpuscular HGB Conc 34.5 g/dl (32-36); Mean Corpuscular Hemoglobin 32.4 pg (26-34); Mean Corpuscular Volume 93.8 fl (80-100); Mean Platelet Volume 9.5 fl (7.4-10.4); Monocytes Absolute Auto 0.6 K/mm3 (0.1-0.6); Monocytes Percent Auto 8.3 % (2.6-8.5); Neutrophils Absolute Auto 4.5 K/mm3 (1.3-6.7); Neutrophils Percent Auto 64.3 % (45.5-73.1); Platelet Count Result 170 k/mm3 (150-375); Red Blood Count 4.38 M/mm3 (4.2-5.4); Red Cell Distribution Width 12.7 % (11.5-14.5)
[2022-10-04 06:28] LABS: Appearance Urine Clear (Clear); Bacteria Urine None Seen /hpf; Bilirubin Urine Negative (Negative); Blood Urine Negative (Negative); Color Urine Yellow (Yellow); Glucose Urine UA Negative (Negative); Ketones Urine Negative (Negative); Leukocyte Esterase Ur 3+ LEU/UL (Negative); Nitrate Urine Negative (Negative); Non Pathogenic Casts 0-2; Protein Urine Negative (Negative); RBC Urine 0-2 /hpf (0-2); Specific Grav Ur 1.013 (1.001-1.035); Squamous Epithelial Cell Urine None seen /hpf (Few); Urobilinogen Urine 0.2 mg/dL (<2.0); pH Urine 7.5 (5.0-9.0)
[2022-10-04 06:42] LABS: Alanine Aminotransferase 37 U/L (6-35); Albumin Level 4.7 g/dL (3.5-5.1); Alkaline Phosphatase 105 U/L (38-126); Anion Gap 7 mmol/L (8-16); Aspartate Amino Transferase 58 U/L (14-36); Bilirubin,Total 0.5 mg/dL (0.2-1.3); Blood Urea Nitrogen 14 mg/dL (7-17); Calcium 9.4 mg/dL (8.4-10.2); Carbon Dioxide 30 mmol/L (22-30); Chloride 99 mmol/L (98-107); Creatine Kinase 493 U/L (30-135); Estimated Glomerular Filt Rate > 60; Glucose 109 mg/dL (65-110); Potassium 3.5 mmol/L (3.4-5.0); Sodium 136 mmol/L (137-145)
[2022-10-04 07:00] LABS: Add Urine Microscopic? YES
[2022-10-04] MEDS: SODIUM CHLORIDE 0.9% IV 1,000 ML 999 ML IV CONT (07:16)
--- NOTE | 2022-10-04 08:45 | PC.NURSE ---
explained use of IS and pt demonstrated understanding of device
== END 2022-10-04 08:47 | disposition home or self-care (01) ==
PROVIDERS: Emergency Provider Emergency Medicine; PCP Family Medicine
DX: S22.41XA Multiple fractures of ribs, right side, initial encounter for closed fracture (principal); S50.01XA Contusion of right elbow, initial encounter; M84.454A Pathological fracture, pelvis, initial encounter for fracture; N39.0 Urinary tract infection, site not specified; G30.9 Alzheimer's disease, unspecified; F02.80 Dementia in other diseases classified elsewhere, unspecified severity, without behavioral disturbance, psychotic disturbance, mood disturbance, and anxiety; I10 Essential (primary) hypertension; E78.5 Hyperlipidemia, unspecified; N32.81 Overactive bladder; M81.0 Age-related osteoporosis without current pathological fracture; M47.812 Spondylosis without myelopathy or radiculopathy, cervical region; W19.XXXA Unspecified fall, initial encounter
CPT/HCPCS: 36415; 70450; 71260; 72125; 73080; 74177; 80053; 81001; 82550; 85025; 87086; 96360; 99284; J7030; Q9967

== ENCOUNTER 2023-04-17 23:58 | Emergency (ER) | payer MEDICARE, OTHER, SELFPAY ==
--- NOTE | ~2023-04-17 | XR_ITS ---
EXAMINATION: XR shoulder RT min 2V DATE: 04/18/2023 01:21 INDICATION: Right shoulder pain and bruising post fall TECHNIQUE: AP internally and externally rotated, AP oblique externally rotated and transscapular Y vi ews of the right shoulder were obtained. COMPARISON: Right shoulder radiographs dated 09/08/[address] chest dated 10/04/2022 FINDINGS: Minimally displaced extra-articular fracture at the lateral head of the right clavicle. Alignment rem ains near-anatomic. 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 No other fracture s identified. Advanced osteoarthritis at the right glenohumeral joint with remodeling of the humeral head and acetabulum. There are a few small loose osteochondral bodies about the joint space. There is moderate osteoarthritis at the acromial clavicular joint. Small calcified nodules in the right lung and calcified right hilar lymph nodes consistent with old granulomatous disease. IMPRESSION: 1. Minimally displaced extra articular fracture at the lateral head of the right clavicle. 2. 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 3. Advanced right glenohumeral osteoarthritis. Reviewed, dictated and finalized at location A. NG INSERTER IMPRESSION: 1. Minimally displaced extra articular fracture at the lateral head of the righ t clavicle. 2. 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 3. Advanced right glenohumeral osteoarthritis.
--- NOTE | ~2023-04-17 | CT_ITS ---
EXAMINATION: CT cervical spine wo con DATE: 04/18/2023 01:18 INDICATION: Trauma with head injury TECHNIQUE: Computed tomography (CT) of the cervical spine was performed without intravenous contrast. Automated exposure control and iterative reconstruction technique were employed. The dose-length pro duct was 103.31 mGy-cm. COMPARISON: 10/04/2022 FINDINGS: 3 mm anterolisthesis C7 on T1. Cervical vertebral body heights are normal. Chronic compression fractu re with 20% anterior vertebral body height loss at T4. No acute fracture. Severe disc height loss at C3-C4 through C5-C6, C7-T1 and T1-T2. Moderate disc height loss at C6-C7 and T2-T3. There is multilev el severe bilateral cervical uncovertebral osteoarthritis and severe facet osteoarthritis throughout the left side of the cervical spine sparing C6-C7 and on the left at C7-T1 with mild to moderate face t osteoarthritis at the remaining cervical levels. Facet and uncovertebral osteoarthritis contributin g to multilevel mild bilateral neural foraminal stenosis throughout the cervical spine. Atherosclerot ic calcific a cyst at the bilateral carotid bulbs. Cervical soft tissues are otherwise unremarkable. Visualized apices of the lungs are clear. Tortuous aortic arch. IMPRESSION: 1. Unchanged chronic mild T4 compression fracture. No acute osseous abnormality in the cervical or vi sualized upper thoracic spine. 2. Severe cervical spondylosis. Reviewed, dictated and finalized at location A. EM SPECIALIST IMPRESSION: 1. Unchanged chronic mild T4 compression fracture. No acute osseous abnormality in the cervical or visualized upper thoracic spine. 2. Severe cervical spondylosis.
--- NOTE | ~2023-04-17 | CT_ITS ---
EXAMINATION: CT brain wo con DATE: 04/18/2023 01:18 INDICATION: Fall with head injury and neck pain. TECHNIQUE: Computed tomography (CT) of the head was performed without intravenous contrast. Sagittal and coronal reconstructions were performed. The mA was adjusted according to patient size. Iterative reconstruction technique was employed. The dose-length product was 529.67 mGy-cm. COMPARISON: head CT dated 10/04/22 FINDINGS: No fracture. No acute intracranial hemorrhage, acute infarction or abnormal extra axial fluid collect ion. There is mild to moderate scattered white matter hypoattenuation consistent with chronic small v essel ischemic disease. Symmetric prominence of the sulci and subarachnoid spaces overlying the front al lobes consistent with moderate age-appropriate diffuse cerebral volume loss. Ventricles are normal and symmetric. No mass/mass effect. Changes of bilateral intraocular lens replacement. The orbits ar e normal. Chronic small left mastoid effusion. IMPRESSION: 1. No fracture or acute intracranial process. 2. Age-related changes including moderate diffuse volume loss and mild to moderate scattered white ma tter hypoattenuation consistent with chronic small vessel ischemic disease. Reviewed, dictated and finalized at location A. IAL INVESTIGATION UNIT INVESTIGATOR IMPRESSION: 1. No fracture or acute intracranial process. 2. Age-related changes including moderate diffuse volume loss and mild to moder ate scattered white matter hypoattenuation consistent with chronic small vessel ischemic disease.
[2023-04-17 23:59] VITALS: BP 163/70; PULSE 61; RESP 19; TEMP 36.4; O2SAT 95
[2023-04-18 00:15] VITALS: BP 158/71; PULSE 62; RESP 14; O2SAT 97
--- NOTE | 2023-04-18 03:00 | PC.NURSE ---
Patient tolerated ambulating well. States when she is at home she uses a walker. Was able to walk with standby assist while holding arm rails.
--- NOTE | 2023-04-18 03:11 | ED.GENADULT ---
HPI - General Adult General Chief complaint: Fall Stated complaint: FALL DOWN STAIRS, RIGHT SHOULDER PAIN INTO NECK Time Seen by Provider: 04/18/23 00:06 History of Present Illness HPI narrative: patient 83-year-old female who presents to emergency department with chief complaint of fall downstairs right shoulder pain and neck pain. Patient reports she fell down approximately 12 steps reports pain in her right shoulder area. Patient was seen by EMS and placed in a C-collar and transported the emergency department. Related Data Home Medications Medication Instructions Recorded Confirmed Darragh-3 1 cap PO DAILY 05/25/19 02/24/23 bimatoprost 0.03 % eye drops 1 drp ophthalmic (eye) DAILY 05/25/19 02/24/23 cyclosporine 0.05 % eye drops in a 1 drp ophthalmic (eye) Q12H 05/25/19 02/24/23 dropperette (Restasis) multivitamin with minerals (Daily 1 tablet PO DAILY 05/25/19 02/24/23 Multivitamin-Minerals tablet) cholecalciferol (vitamin D3) 25 25 mcg PO DAILY 03/04/20 02/24/23 mcg (1,000 unit) tablet Allergies Allergy/AdvReac Type Severity Reaction Status Date / Time codeine Allergy Unknown Other Verified 04/18/23 00:11 temazepam Allergy Unknown Rash Verified 04/18/23 00:11 clonazepam Allergy Unknown Verified 04/18/23 00:11 zolpidem [From Ambien] Allergy Unknown Verified 04/18/23 00:11 Review of Systems Review of Systems: A 10 system review of systems was completed on the patient and is negative except for what is stated in the HPI. Nursing and ancillary documentation was reviewed. [facility] Past Medical History Medical History Acute UTI Allergic contact dermatitis due to plants, except food Alzheimer's dementia Anxiety Anxiety disorder, unspecified Cellulitis of right lower extremity Chronic bilateral low back pain without sciatica Depression Dry mouth Elevated blood sugar Essential (primary) hypertension Essential (primary) hypertension Hyperlipidemia Hypothyroid Infected insect bite or sting Insomnia Left flank pain Leg cramps Lump of left breast Medicare annual wellness visit, subsequent Memory change OAB (overactive bladder) Osteoporosis Other specified depressive episodes Postmenopausal Pulmonary nodule Pyelonephritis Shoulder arthritis Surgical History Surgical History History of surgery on right wrist (~2003) Family History Family History Mother Family history of coronary artery disease Family history of cardiovascular disease, Onset Age: 71 Social History Social History Social History: Smoking status: Never smoker Second hand tobacco smoke exposure: No Alcohol intake: never Substance use: never Substance use type: does not use Lack of Transportation: No Lack of Food: Never True Current Housing: I Have Housing Concerned About Future Housing: No Difficulty Paying Gas/Electric Bills: No Difficulty Paying for Meds: No Currently Unemployed: YES Education: Decline to Answer Difficulty w/ Childcare or Family Care: No Living arrangements: alone Occupation/Education: retired Gender identity (if verbalized by the patient): Female Sexual Orientation (if Verbalized by the Patient): Straight or Heterosexual Exam Narrative: GENERAL: Well-appearing, well-nourished, and in no acute distress. HEAD: Normocephalic, atraumatic. EYES: PERRLA and EOMI. ENT: Nares clear, no rhinorrhea or epistaxis. Mucous membranes moist. NECK: Supple. CHEST: Clear to auscultation. No respiratory distress. HEART: Regular rate and rhythm. No murmur heard. Normal peripheral pulses. ABDOMEN: Soft, nontender, nondistended, normal active bowel sounds. EXTREMITIES: Normal range of motion. Tenderness to palpati
[2023-04-18 03:46] VITALS: BP 148/69; PULSE 56; RESP 16; O2SAT 100
== END 2023-04-18 03:46 | disposition home or self-care (01) ==
PROVIDERS: Emergency Provider Emergency Medicine; PCP Family Medicine
DX: S42.031A Displaced fracture of lateral end of right clavicle, initial encounter for closed fracture (principal); S09.90XA Unspecified injury of head, initial encounter; G30.9 Alzheimer's disease, unspecified; F02.80 Dementia in other diseases classified elsewhere, unspecified severity, without behavioral disturbance, psychotic disturbance, mood disturbance, and anxiety; I10 Essential (primary) hypertension; E78.5 Hyperlipidemia, unspecified; E03.9 Hypothyroidism, unspecified; N32.81 Overactive bladder; M81.0 Age-related osteoporosis without current pathological fracture; M19.011 Primary osteoarthritis, right shoulder; F41.9 Anxiety disorder, unspecified; F32.A Depression, unspecified; Z87.440 Personal history of urinary (tract) infections; M47.812 Spondylosis without myelopathy or radiculopathy, cervical region; W18.30XA Fall on same level, unspecified, initial encounter
CPT/HCPCS: 70450; 72125; 73030; 99284; A4565

== ENCOUNTER → 2023-05-13 13:25 | Outpatient (CLI) | payer MEDICARE, OTHER, SELFPAY ==
--- NOTE | ~2023-05-13 | XR_ITS ---
EXAM: XR clavicle RT DATE: 05/13/2023 13:51 HISTORY: S42.009A - Fracture of unspecified part of unspecified cl... . COMPARISON: 04/18/2023. FINDINGS: Decreased mineralization. 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 Redemonstration of the distal right clavicular fracture, with increased distra ction and 3 mm superior displacement of the distal fragment No new acute fracture or dislocation. No lytic or blastic lesion. Moderate AC joint and severe glenohumeral joint osteoarthritis. Loose bodies at the shoulder joint. No erosion or periosteal change. Soft tissues within normal limits. IMPRESSION: Increased distraction and displacement of the distal right clavicular fracture. 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 Reviewed, dictated and finalized at location K. LIATE MARKETING COORDINATOR
== END ==
PROVIDERS: PCP Family Medicine; Visit Provider Orthopaedic Surgery
DX: S42.031D Displaced fracture of lateral end of right clavicle, subsequent encounter for fracture with routine healing (principal); X58.XXXD Exposure to other specified factors, subsequent encounter
CPT/HCPCS: 73000

== ENCOUNTER 2023-08-12 11:58 | Outpatient (CLI) | payer MEDICARE, OTHER, SELFPAY ==
[2023-08-12 13:28] LABS: Basophils Percent Auto 0.5 % (0.2-1.2); Eosinophils Absolute Auto 0.1 K/mm3 (0-0.3); Eosinophils Percent Auto 1.4 % (0-4.4); Hematocrit 42.3 % (37.0-47.0); Hemoglobin 13.8 g/dL (12.0-15.0); Immature Granulocyte Absolute 0.02 K/mm3 (0.00-0.031); Immature Granulocyte Percent A 0.3 % (0-0.5); Lymphocytes Absolute Auto 2.16 K/mm3 (0.9-3.2); Lymphocytes Percent Auto 29.4 % (18.3-44.2); Mean Corpuscular HGB Conc 32.6 g/dl (32-36); Mean Corpuscular Volume 95.1 fl (80-100); Mean Platelet Volume 9.8 fl (7.4-10.4); Monocytes Absolute Auto 0.7 K/mm3 (0.1-0.6); Monocytes Percent Auto 9.3 % (2.6-8.5); Neutrophils Absolute Auto 4.4 K/mm3 (1.3-6.7); Neutrophils Percent Auto 59.1 % (45.5-73.1); Platelet Count Result 182 k/mm3 (150-375); Red Blood Count 4.45 M/mm3 (4.2-5.4); Red Cell Distribution Width 13.2 % (11.5-14.5); White Blood Count 7.4 K/mm3 (4.5-10.0)
[2023-08-12 13:41] LABS: Alanine Aminotransferase 22 U/L (6-35); Albumin Level 4.7 g/dL (3.5-5.1); Alkaline Phosphatase 95 U/L (38-126); Anion Gap 7 mmol/L (4-12); Aspartate Amino Transferase 34 U/L (14-36); Bilirubin,Total 0.5 mg/dL (0.2-1.3); Blood Urea Nitrogen 24 mg/dL (7-17); Calcium 10.1 mg/dL (8.4-10.2); Carbon Dioxide 26 mmol/L (22-30); Chloride 105 mmol/L (98-107); Cholesterol 175 mg/dL (0-200); Estimated Glomerular Filt Rate > 60; Glucose 89 mg/dL (65-110); HDL Direct 37 mg/dL; Sodium 138 mmol/L (137-145); Triglycerides 139 mg/dL (<150)
[2023-08-12 13:52] LABS: LDL Cholesterol Direct 104 mg/dL
[2023-08-12 14:38] LABS: Free T4 Free Thyroxine 1.17 ng/mL (0.78-2.19)
== END 2023-08-12 11:59 | disposition home or self-care (01) ==
LOC: ANHLAB 12:03
PROVIDERS: PCP Family Medicine; Visit Provider Physician Assistant
DX: F41.9 Anxiety disorder, unspecified (principal); E03.9 Hypothyroidism, unspecified; E07.9 Disorder of thyroid, unspecified; I10 Essential (primary) hypertension; E78.2 Mixed hyperlipidemia
CPT/HCPCS: 36415; 80053; 80061; 84439; 84443; 85025

== ENCOUNTER 2024-01-31 15:51 | Outpatient (CLI) | payer MEDICARE, OTHER, SELFPAY ==
--- NOTE | ~2024-01-31 | XR_ITS ---
XR hip LT min 2V Ordering provider: Maria Teresa Glynn PA-C History: . M25.552 - Pain in left hip . Comparison: March 06, 2016 FINDINGS: BONES: No acute fracture or dislocation. Old healed fractures in the right and left pubic bones. HIP JOINT SPACES: Severe osteoarthritic changes. SACROILIAC JOINT SPACES/LUMBAR SPINE: The sacroiliac joint spaces shows osteoarthritic changes. Mild degenerative changes of the visualized lower lumbar spine. PUBIC SYMPHYSIS: Shows old healed fractures with widening of the symphysis pubis. SOFT TISSUES: Normal. IMPRESSION: No acute osseous abnormality pelvis and left hip. Reviewed, dictated and finalized at location A.
== END 2024-01-31 15:52 | disposition home or self-care (01) ==
LOC: ANHIMG 15:55
PROVIDERS: PCP Family Medicine; Visit Provider Physician Assistant
DX: M25.552 Pain in left hip (principal); W19.XXXA Unspecified fall, initial encounter
CPT/HCPCS: 73502

== ENCOUNTER 2024-05-08 10:46 | Emergency (ER) | payer MEDICARE, OTHER, SELFPAY ==
--- NOTE | ~2024-05-08 | XR_ITS ---
EXAMINATION: XR ribs BI 3V w CXR 2V DATE: 05/08/2024 11:56 INDICATION: Fall. TECHNIQUE: Frontal and lateral views of the chest and 2 views on 3 radiographs of the right ribs and 2 views of the left ribs were obtained. COMPARISON: Chest 2 views 07/06/2017 FINDINGS: CHEST TWO VIEWS: There is mild atelectasis in the lower lung zones. No pleural effusion or pneumothor ax. The heart size is normal. There is an old fracture of distal right clavicle with nonunion. BILATERAL RIBS: There are old healed fractures of multiple ribs bilaterally. IMPRESSION: 1. Old healed bilateral rib fractures. No acute fracture identified. 2. Mild atelectasis in the lower lung zones. Reviewed, dictated and finalized at location A. R SHERIFF
[2024-05-08 10:56] VITALS: BP 173/80; PULSE 63; RESP 16; TEMP 36.9; O2SAT 99
--- NOTE | 2024-05-08 11:14 | PC.NURSE ---
Pt. has pain to the R. side of her sternum. Denies SOB. Pain is worse with movement. No areas of open skin, deformity, or bruising.
--- NOTE | 2024-05-08 12:39 | ED_ITS ---
HPI - Fall General Chief Complaint: Fall Stated Complaint: PAIN AFTER A FALL LAST WEEK Time Seen by Provider: 05/08/24 11:16 History of Present Illness HPI Narrative: 84-year-old female with a history of dementia presents to the emergency department accompanied by her daughter. Patient had her chest on a sink about 1 week prior has been having some intermittent pain in the right side of her ribs anteriorly. She states she has been taking her Tylenol p.m. without any relief of her symptoms. No difficulty breathing, no back pain, nausea, vomiting, head trauma. She was otherwise in her normal state of health. Her daughter provides collateral formation states that she does frequently fall but this is not new for her. She has previously injured herself similarly but she attributed this to patient's very short stature and trying to get up on high shelves and climbing on the sink. Patient self is well appearing not any acute distress and has no evidence of trauma on her chest, extremities or head. Not on any blood thinner medications on review of the EMR. Related Data Home Medications ?Medication ?Instructions ?Recorded ?Confirmed ?Last Taken ?Type [place]-3 1 cap PO DAILY 05/25/19 01/31/24 Unknown History bimatoprost 0.03 % eye drops 1 drp ophthalmic (eye) DAILY 05/25/19 01/31/24 Unknown History cyclosporine 0.05 % eye drops in a 1 drp ophthalmic (eye) Q12H 05/25/19 01/31/24 Unknown History dropperette (Restasis) multivitamin with minerals (Daily 1 tablet PO DAILY 05/25/19 01/31/24 Unknown History Multivitamin-Minerals tablet) cholecalciferol (vitamin D3) 25 25 mcg PO DAILY 03/04/20 01/31/24 Unknown History mcg (1,000 unit) tablet Allergies Allergy/AdvReac Type Severity Reaction Status Date / Time codeine Allergy Unknown Other Verified 03/22/24 13:58 clonazepam Allergy Unknown Verified 03/22/24 13:58 zolpidem (From Ambien) Allergy Unknown Verified 03/22/24 13:58 Review of Systems Review of Systems: As reviewed [facility] Past Medical History Medical History Essential (primary) hypertension Dry mouth Acute UTI Pyelonephritis Pulmonary nodule Postmenopausal Other specified depressive episodes Medicare annual wellness visit, subsequent Leg cramps Left flank pain Infected insect bite or sting Elevated blood sugar Chronic bilateral low back pain without sciatica Cellulitis of right lower extremity Anxiety disorder, unspecified Allergic contact dermatitis due to plants, except food Alzheimer's dementia Shoulder arthritis Insomnia Memory change Hyperlipidemia Essential (primary) hypertension Anxiety Hypothyroid Depression Osteoporosis OAB (overactive bladder) Lump of left breast Surgical History Surgical History History of surgery on right wrist (~2003) Family History Family History Mother Family history of coronary artery disease Family history of cardiovascular disease, Onset Age: 71 Social History Social History Social History: Smoking status: Never smoker Second hand tobacco smoke exposure: No Alcohol intake: never Substance use: never Substance use type: does not use Do You Feel Safe in your Home?: Yes Lack of Transportation: No Lack of Food: Never True Current Housing: I Have Housing Concerned About Future Housing: No Difficulty Paying Gas/Electric Bills: No Difficulty Paying for Meds: No Currently Unemployed: No Education: High School Diploma/GED Difficulty w/ Childcare or Family Care: No Living arrangements: alone Occupation/Education: retired Gender identity (if verbalized by the patient): Female Sexual Orientation (if Verbalized by the Patient): Straight or Heterosexual Exam Narrative: GENERAL: [Well-appearing, well-nourished, and in no acute distress.] HEAD: [Normocephalic, atraumatic.] EYES: [PERRLA and EOMI.] ENT: Nares clear, no rhinorrhea or epistaxis. Mucous membranes moist. NECK: Supple. CHEST: [Clear to auscultation. No respiratory distress.] Very reproducible tenderness over the anterior lateral aspect of her right chest wall near her ribs 3 and 4, no step-offs deformities. No overlying skin changes or crepitus HEART: [Regular rate and rhythm]. No murmur heard. [Normal peripheral pulses.] ABDOMEN: [Soft, nondistended], [nontender], [No rigidity or guarding] EXTREMITIES: Normal range of motion. [No edema.] SKIN: Warm, dry, no rash. NEURO: [No focal deficits]. Alert and oriented [x3.] PSYCH: [Normal mood and affect.] Course Vital Signs Vital signs: Vital Signs Temperature 36.9 C 05/08/24 10:56 Pulse Rate 63 05/08/24 10:56 Respiratory Rate 16 05/08/24 10:56 Blood Pressure 173/80 H 05/08/24 10:56 Pulse Oximetry 99 05/08/24 10:56 Temperature 36.9 C 05/08/24 10:56 Pulse Rate 63 05/08/24 10:56 Respiratory Rate 16 05/08/24 10:56 Blood Pressure 173/80 H 05/08/24 10:56 Pulse Oximetry 99 05/08/24 10:56 MDM - Fall MDM Narrative Medical decision making narrative: 84-year-old otherwise well-appearing female with history of dementia presenting to the emergency room with chief complaint of pain in the right side of her chest after striking a corner of her sink about 1 week prior. Intermittent pain since then and very focal. States her Tylenol p.m. at home was not working today. No difficulty breathing, chest pain elsewhere, back pain, nausea vomiting, head trauma. Does not take any blood thinners. Clear breath sounds throughout. Very reproducible tenderness over the anterior lateral aspect of her right chest wall near her ribs 3 and 4, no step-offs deformities. Will obtain an chest x-ray with rib series to assess for any rib contusions, rib fractures. Low suspicion pneumothorax or any other intrathoracic process. Chest x-rays independent reviewed by myself and rib series reviewed by Radiology showing old healed bilateral fractures but no acute fractures, mild atelectasis but no pneumothorax. Patient was provided Toradol for analgesia and stable for discharge home at this time the prescription for as needed Naprosyn. Medical Records Attestation: I reviewed the patient's medical records. Imaging Data Attestation: I personally reviewed and interpreted this imaging study as follows: My impression: Impressions Ribs w/Chest X-Ray 05/08/24 12:09 IMPRESSION: 1. Old healed bilateral rib fractures. No acute fracture identified. 2. Mild atelectasis in the lower lung zones. Discharge Plan Discharge Clinical Impression: Contusion of rib on right side Patient Disposition: Home, Self-Care Condition: Stable Instructions: Antibiotic Form, Rib Contusion (ED) Additional Instructions: No broken bones identified today, you likely have a rib contusion or bruising of the rib, follow-up with regular doctor outpatient. Will prescribe you Naprosyn for any residual pain. Return with any new or worsening concerns at any time Patient Language: Hebrew Prescriptions: New naproxen [Naprosyn] 500 mg tablet 500 mg PO BID PRN (Reason: pain) Qty: 20 0RF No Action bimatoprost 0.03 % Drops 1 drp OPHTHALMIC (EYE) DAILY multivitamin with minerals [Daily Multivitamin-Minerals] Tablet 1 tablet PO DAILY Restasis 0.05 % Dropperette 1 drp OPHTHALMIC (EYE) Q12H Bell Buckle-3 1 cap PO DAILY cholecalciferol (vitamin D3) 25 mcg (1,000 unit) tablet 25 mcg PO DAILY levothyroxine 75 mcg tablet See Rx Instructions .ROUTE .COMPLEX Qty: 90 3RF Dose Instruction: TAKE 1 TABLET DAILY Rx Instructions: TAKE 1 TABLET DAILY sertraline 100 mg tablet See Rx Instructions .ROUTE .COMPLEX Qty: 90 3RF Dose Instruction: TAKE 1 TABLET DAILY Rx Instructions: TAKE 1 TABLET DAILY memantine 10 mg tablet See Rx Instructions .ROUTE .COMPLEX Qty: 180 3RF Dose Instruction: TAKE 1 TABLET TWICE A DAY Rx Instructions: TAKE 1 TABLET TWICE A DAY mirtazapine 15 mg tablet 15 mg PO QHS Qty: 100 1RF temazepam 7.5 mg capsule 7.5 mg PO QHS Qty: 30 1RF amlodipine 5 mg tablet 5 mg PO QPM Qty: 100 1RF Follow-up/Referrals: Linda Berry MD [Primary Care Provider] - Time of Disposition: 12:46
[2024-05-08 12:57] VITALS: BP 155/95; PULSE 65; RESP 16; O2SAT 95
== END 2024-05-08 12:59 | disposition home or self-care (01) ==
PROVIDERS: Emergency Provider Student in an Organized Health Care Education/Training Program; PCP Family Medicine
DX: S20.211A Contusion of right front wall of thorax, initial encounter (principal); X58.XXXA Exposure to other specified factors, initial encounter; F03.90 Unspecified dementia, unspecified severity, without behavioral disturbance, psychotic disturbance, mood disturbance, and anxiety; I10 Essential (primary) hypertension; E03.9 Hypothyroidism, unspecified; M81.0 Age-related osteoporosis without current pathological fracture; F41.8 Other specified anxiety disorders
CPT/HCPCS: 71046; 71110; 99283

== ENCOUNTER 2024-07-08 12:20 | Outpatient (CLI) | payer MEDICARE, OTHER, SELFPAY ==
--- OUTSIDE RECORDS SUMMARY | 2024-07-08 12:24 | XMS_ITS | Referral Summary ---
Author Organization [facility] Address [address] [place] [address] Care Team Providers Care Inclusion Intern Name Role Phone Garland Bella DO Primary Care Provider [phone] Source Comments [facility],non-owned Affiliates and Associated Physician Practices is amultiple site organization consisting of ambulatory clinics and hospital sitesin [place], [place], [place] and [place]. This disclosure is being madepursuant to the Care Everywhere program and may not contain all information available regarding this patient. Last updated 18.[facility] Allergies Active Allergy Reactions Criticality Noted Date Comments Temazepam Skin Reactions,Rash Medium 10/16/2015 Active Problems Problem Noted Date Diagnosed Date Essential (primary) hypertension 10/20/2015 Fall 10/19/2015 Acquired cyst of kidney 10/19/2015 Solitary pulmonary nodule 10/17/2015 Social History Tobacco Use Types Packs/Day Years Used Date Smoking Tobacco: Never Alcohol Use Standard Drinks/Week Comments No 0 (1 standard drink = 0.6 oz pur e alcohol) Sex and Gender Information Value Date Recorded Sex Assigned at Not on file Gender Identity Not on file Sexual Orientation Not on file Last Filed Vital Signs Vital Sign Reading Time Taken Comments Blood Pressure 173/72 10/21/2015 12:22 PM CDT Pulse 68 10/21/2015 8:54 AM CDT Temperature 36.7 C (98 F) 10/21/2015 12:22 PM CDT Respiratory Rate 18 10/21/2015 12:22 PM CDT Oxygen Saturation 99% 10/21/2015 12:22 PM CDT Inhaled Oxygen Concentration - - Weight 49.9 kg (110 lb) 01/13/2016 9:42 AM CDT Height 147.3 cm (4' 10 ) 01/13/2016 9:42 AM CDT Body Mass Index 22.99 01/13/2016 9:42 AM CDT Plan of Treatment Not on file Care Teams Inclusion Intern Relationship Specialty Start Date End Date Garland Bella DO PCP - General 10/17/15
--- OUTSIDE RECORDS SUMMARY | 2024-07-08 12:24 | XMS_ITS | Continuity of Care Document ---
Author Organization [facility] Address [address] [place] [address] Phone Care Team Providers Care Degreasing Solution Mixer Name Role Phone Min Saenz PTA Unavailable Unavailable Procedures Procedure Date Therapeutic Activities Neuromuscular Re-Ed Therapeutic Exercise Therapeutic Activities Neuromuscular Re-Ed Doc neg elder mal no plan PRES/ABSN URINE INCON ASSESS PT Evaluation Moderate Complexity Therapeutic Activities Therapeutic Exercise Advance Directives Directive Yes / No Effective Date File Name No Information Encounters Encounter Description Practice Location Reason(s) For Visit Diagnoses Date Provider Providers Copied on Encounter [facility] [address], [place], [place], [id number], tel:[phone] [place] No Information b- 5 Dany Copeland. . Referring Provider: Nick Irving, [address] [place], [address]. tel:[phone] [facility], [address], [place], [place], [id number], tel:[phone] [facility] No Information b- 5 Carlie Huff. . Referring Provider: Nick Irving, [address] [place], [address]. tel:[phone] [facility], [address], [place], [place], [id number], [place] tel:[phone] [facility] No Information Carlie Huff. . Referring Provider: Bonita Li[facility], [place], [address]. tel:[phone] Family History Family Member Type Diagnosis Age At Onset No Information Payers Payer name Insurance type Covered republican ID Authortoro cooley(s) Medicare [place] MB [id number] For Life Medicare Se condary Only CI [id number] Social History Type Description Quantity Date Captured Comments Sex Female Smoking Status No Information Chief Complaint And Reason For Visit No Information Reason For Referral Reason For Referral No Information Plan Of Treatment Date Type Action Status Appointment Kamilla Crespo DO NOT DOUBLE BOOKED Appointment Kamilla Crespo DO NOT DOUBLE BOOKED Appointment Kamilla Crespo DO NOT DOUBLE BOOKED Appointment Kamilla Crespo DO NOT DOUBLE BOOKED History Of Present Illness Encounter Date Complaint History Of Prese nt Illness No Information Functional Status Date Functional Assessmen t No Information Instructions Date Instruction Additional Infor mation No Information Assessments Type Assessment Date No Information Patient Care Teams Name Effective Dates (start - stop) Status Members No Information
--- OUTSIDE RECORDS SUMMARY | 2024-07-08 12:24 | XMS_ITS | Clinical Summary ---
Author Organization [facility] Address [address] [place] [place] [address] Care Team Providers Care Hair Boiler Name Role Phone Garland Bella DO Primary Care Provider [phone] Source Comments [facility],non-owned Affiliates and Associated Physician Practices is amultiple site organization consisting of ambulatory clinics and hospital sitesin [place], [place]. This disclosure is being madepursuant to the Care Everywhere program and may not contain all information available regarding this patient. Last updated 18.[facility] Allergies Active Allergy Reactions Criticality Noted Date Comments Temazepam Skin Reactions,Rash Medium 10/16/2015 Active Problems Problem Noted Date Diagnosed Date Essential (primary) hypertension 10/20/2015 Fall 10/19/2015 Acquired cyst of kidney 10/19/2015 Solitary pulmonary nodule 10/17/2015 Family History Medical History Relation Name Comments Other Father from pneum onia Other Mother had angina Relation Name Status Comments Father Mother Social History Tobacco Use Types Packs/Day Years [...] 01/13/2016 9:42 AM CDT Plan of Treatment Health Maintenance Due Date Last Done Comments BONE DENSITY TESTING 1940 DTAP/TDAP/TD VACCINES (1 - Tdap) 1957 PNEUMOCOCCAL VACCINE 50+ (1 of 1 - PCV) 1988 ZOSTER VACCINE (1 of 2) 1988 Respiratory Syncytial Virus (RSV) Vaccine Pt: or over 60 yrs (1 - 1-dose 75+ series) 2013 COVID-19 VACCINE ( - 2023-2 5 season) 2024 INFLUENZA VACCINE (#1) 2024 DEPRESSION SCREENING 05/17/2024 HEPATITIS B VACCINE Aged Out No longe r eligible based on patient's age to complete this topic HIB VACCINE Aged Out No longer eligi ble based on patient's age to complete this topic HPV VACCINE Aged Out No longer eligi ble based on patient's age to complete this topic MENINGOCOCCAL (Group B) VACCINE Aged Out No longer eligible based on patient's age to complete this topic MENINGOCOCCAL VACCINE Aged Out No gerry katherine eligible based on patient's age to complete this topic Care Teams Hair Boiler Relationship Specialty Start Date End Date Garland Bella DO PCP - General 10/17/15
--- OUTSIDE RECORDS SUMMARY | 2024-07-08 12:24 | XMS_ITS | Patient Health Summary ---
Author Organization [facility] Address [address] [place] [address] Care Team Providers Care Retail Route Supervisor Name Role Phone Garland Bella DO Primary Care Provider Note from [facility],non-owned Affiliates and Associated Physician Practices is amultiple site organization consisting of ambulatory clinics and hospital sitesin [place], [place], [place] and [place]. This disclosure is being madepursuant to the Care Everywhere program and may not contain all information available regarding this patient. Last updated 18.[facility] Allergies * Temazepam(Skin Reactions,Rash) -Medium Criticality Active Problems Problem Noted Date Diagnosed Date [...] Mass Index 22.99 01/13/2016 9:42 AM CDT Procedures * XR CERVICAL SPINE 2 OR 3VW(Performed 01/13/2016) * XR CERVICAL SPINE 2 OR 3VW(Performed 12/09/2015) * XR CERVICAL SPINE 2 OR 3VW(Performed 11/11/2015) * DIFFERENTIAL MANUAL(Performed 10/21/2015) * CBC W AUTO DIFFERENTIAL(Performed 10/21/2015) * CBC W AUTO DIFFERENTIAL(Performed 10/21/2015) * BASIC METABOLIC PANEL (CALCIUM TOTAL)(Performed 10/21/2015) * CK BLOOD(Performed 10/21/2015) * BASIC METABOLIC PANEL (CALCIUM TOTAL)(Performed 10/20/2015) * CBC W AUTO DIFFERENTIAL(Performed 10/20/2015) * CBC W AUTO DIFFERENTIAL(Performed 10/20/2015) * FOLATE(Performed 10/19/2015) * VITAMIN B12(Performed 10/19/2015) * OSMOLALITY BLOOD(Performed 10/19/2015) * BASIC METABOLIC PANEL (CALCIUM TOTAL)(Performed 10/19/2015) * CK BLOOD(Performed 10/19/2015) * CBC W AUTO DIFFERENTIAL(Performed 10/19/2015) * CBC W AUTO DIFFERENTIAL(Performed 10/19/2015) * OSMOLALITY URINE(Performed 10/18/2015) * SODIUM URINE RANDOM(Performed 10/18/2015) * CREATININE URINE RANDOM(Performed 10/18/2015) * CORTISOL BLOOD AM(Performed 10/18/2015) * POTASSIUM BLOOD(Performed 10/18/2015) * TSH(Performed 10/18/2015) * MAGNESIUM BLOOD(Performed 10/18/2015) * BASIC METABOLIC PANEL (CALCIUM TOTAL)(Performed 10/18/2015) * CBC W AUTO DIFFERENTIAL(Performed 10/18/2015) * CBC W AUTO DIFFERENTIAL(Performed 10/18/2015) * CT ANGIO NECK(Performed 10/17/2015) * CK BLOOD(Performed 10/16/2015) * XR PELVIS 1 OR 2VW(Performed 10/16/2015) * DRUG ABUSE PANEL 10-20+ETHANOL URINE NO CONFIRM(Performed 10/16/2015) * URINALYSIS REFLEX TO MICROSCOPIC NO CULTURE(Performed 10/16/2015) * CT THORACIC SPINE WO CONTRAST(Performed 10/16/2015) * CT CHEST ABDOMEN PELVIS WO CONT(Performed 10/16/2015) * CT HEAD WO CONTRAST(Performed 10/16/2015) * CT LUMBAR SPINE WO CONTRAST(Performed 10/16/2015) * CT CERVICAL SPINE WO CONTRAST(Performed 10/16/2015) * TYPE + SCREEN PANEL(Performed 10/16/2015) * ALCOHOL ETHYL BLOOD(Performed 10/16/2015) * BASIC METABOLIC PANEL (CALCIUM TOTAL)(Performed 10/16/2015) * HEPATIC FUNCTION PANEL(Performed 10/16/2015) * LACTIC ACID BLOOD(Performed 10/16/2015) * CBC W AUTO DIFFERENTIAL(Performed 10/16/2015) * CBC W AUTO DIFFERENTIAL(Performed 10/16/2015) * PTT [facility](Performed 10/16/2015) * PT-INR [facility](Performed 10/16/2015) * XR CHEST 1VW PORTABLE(Performed 10/16/2015) * EKG 12-LEAD(Performed 10/16/2015) Results * XR CERVICAL SPINE 2 OR 3VW (01/13/2016 9:27 AM CDT) Only the most recent of3 resultswithin the time period is included. Anatomical Region Laterality Modality Spine Other Impressions 01/13/2016 5:39 PM CDT IMPRESSION: 1. C2 fracture and mild malalignment at C1-C2, not significantly changed. 2. 5 mm retrolisthesis at C7-T1, unchanged. 3. Mild (less than 2 mm) retrolisthesis at C3-4 and C4-5, unchanged. This report was electronically signed by SAWYER BRIGGS MD on 01/13/2016 11:18 AM . ADDENDUM #1 The impression of the report should indicate there is 5 mm anterolisthesis at C7-T1 (not retrolisthesis). This report was electronically signed by SAWYER BRIGGS MD on 01/13/2016 5:39 PM . Narrative 01/13/2016 5:39 PM CDT ORIGINAL REPORT Exam: XR SPINE CERVICAL 2 OR 3 VIEWS History: AP/LAT/Open mouth odontoid films Comparison: 12/09/2015 Findings: A cervical collar is present. A mildly displaced fracture of C2 involving the base of the dens is unchanged in alignment. No new fracture is seen. On the open-mouth view, there is asymmetry of the space between the dens and the lateral masses of C1 measuring 3 mm on the right and 5 mm on the left, not significantly changed. Anterolisthesis measuring 5 mm noted at C7-T1, unchanged. Mild retrolisthesis measuring 2 mm or less at C3-4 and C4-5 is not significantly changed. There is moderate to severe degenerative disc disease in the mid to lower cervical spine. Procedure Note Sawyer Briggs MD - 11/06/2019 ORIGINAL REPORT Exam: XR SPINE CERVICAL 2 OR 3 VIEWS History: AP/LAT/Open mouth odontoid films Comparison: 12/09/2015 Findings: A cervical collar is present. A mildly displaced fracture of C2 involvingthe base of the dens is unchanged in alignment. No new fracture is seen.On the open-mouth view, there is asymmetry of the space between the densand the lateral masses of C1 measuring 3 mm on the right and 5 mm on the left, not significantlychanged. Anterolisthesis measuring 5 mm noted at C7-T1, unchanged. Mildretrolisthesis measuring 2 mm or less at C3-4 and C4-5 is notsignificantly changed. There is moderate to severe degenerative disc disease in the mid to lower cervical spine. IMPRESSION IMPRESSION: 1. C2 fracture and mild malalignment at C1-C2, not significantlychanged. 2. 5 mm retrolisthesis at C7-T1, unchanged. 3. Mild (less than 2 mm) retrolisthesis at C3-4 and C4-5, unchanged. This report was electronically signed by SAWYER BRIGGS MD on 01/13/201611:18 AM . ADDENDUM #1 The impression of the report should indicate there is 5 mm anterolisthesisat C7- T1 (not retrolisthesis). This report was electronically signed by SAWYER BRIGGS MD on 01/13/20165:39 PM . Bucky Cook MD DIAGNOSTIC IMAGING O RDERABLES * (ABNORMAL) DIFFERENTIAL MANUAL (10/21/2015 9:50 AM CDT) WBC (corrected for NRBC) 7.8 10 3/uL [facility] Total Cell Count 100 [facility] Neutrophils Absolute Manual 6.16 1.60 - 7.00 10 3/uL [facility] Comment:(BANDS+SEGS) x WBC = NEUT # (ANC) Lymphocyte Absolute Manual 1.25 0.80 - 2.90 10 3/uL [facility] Monocytes Absolute Manual 0.31 0.14 - 0.66 10 3/uL [facility] Eosinophils Absolute Manual 0.08 0.00 - 0.22 10 3/uL [facility] Band % Manual 2 0 - 10 % [facility] Neutrophil % Manual 77(H) 30 - 60 % [facility] Lymphocyte % Manual 16(L) 20 - 45 % [facility] Monocytes % Manual 4 2 - 10 % [facility] Eosinophils % Manual 1 1 - 6 % [facility] Platelet Estimate Adequate Adequate [facility] RBC Morphology Normal [facility] Blood specimen (specimen) BLOOD SPECIMEN / Unknown 10/21/2015 9:50 AM CDT 10/21/2015 11:02 AM CDT Lance Sky MD LAB - HEMATOLOGY ORD ERABLES Performing Organization Address [facility] Co de Phone Number [facility] [address] [phone] * CBC W AUTO DIFFERENTIAL (10/21/2015 9:50 AM CDT) Only the most recent of10 resultswithin the time period is included. Blood specimen (specimen) BLOOD SPECIMEN / Unknown 10/21/2015 9:50 AM CDT Narrative [facility] - 10/21/2015 11:59 AM CDT The following orders were created for panel order CBC w Differential. Procedure Abnormality Status --------- ------ CBC WITH DIFFERENTIAL[[id number]] Abnormal Final result MANUAL DIFFERENTIAL[[id number]] Abnormal Final result Please view results for these tests on the individual orders. Lance Sky MD LAB - HEMATOLOGY ORD ERABLES Performing Organization Address [facility] Co de Phone Number [facility] [address] * (ABNORMAL) BASIC METABOLIC PANEL (CALCIUM TOTAL) (10/21/2015 7:20 AM CDT) Only the most recent of5 resultswithin the time period is included. BUN 25 7 - 26 mg/dL [facility] Creatinine 1.1 0.6 - 1.2 mg/dL [facility] Comment:Results are confirme d by repeat analysis. Sodium 144 136 - 145 mmol/L [facility] Potassium 4.3 3.5 - 4.5 mmol/L [facility] Chloride 111(H) 98 - 107 mmol/L [facility] CO2 22 22 - 29 mmol/L [facility] Glucose 109 70 - 115 mg/dL [facility] Calcium 10.0 8.4 - 10.2 mg/dL [facility] Anion Gap 15 8 - 18 [facility] BUN/Creatinine Ratio 23 7 - 23 [facility] Osmolality Calculated 303(H) 270 - 300 mOsm/kg [facility] eGFR 48(L) >60 mL/min/1.7 3 m2 [facility] Blood specimen (specimen) BLOOD SPECIMEN / Unknown 10/21/2015 7:20 AM CDT 10/21/2015 7:44 AM CDT Lance Sky MD LAB - CHEMISTRY [place] [address] [phone] * (ABNORMAL) CK BLOOD (10/21/2015 7:20 AM CDT) Only the most recent of3 resultswithin the time period is included. CK Total 208(H) 30 - 200 Units/L [facility] Blood specimen (specimen) BLOOD SPECIMEN / Unknown 10/21/2015 7:20 AM CDT 10/21/2015 7:44 AM CDT Lance Sky MD LAB - CHEMISTRY [place] [address] [phone] * OSMOLALITY BLOOD (10/19/2015 6:45 AM CDT) Pathologist [facility] Osmolality 289 270 - 300 mOsm/kg [facility] Blood specimen (specimen) BLOOD SPECIMEN / Unknown 10/19/2015 6:45 AM CDT 10/19/2015 7:41 AM CDT Lance Sky MD LAB - CHEMISTRY [place] Performing Organization Address [facility]/ZIP Co de Phone Number [address] [phone] * FOLATE (10/19/2015 6:45 AM CDT) [facility] Folate 15.9 7.0 - 31.4 ng/mL [facility] Blood specimen (specimen) BLOOD SPECIMEN / Unknown 10/19/2015 6:45 AM CDT 10/19/2015 6:57 AM CDT [place] SADDLE STITCHING MACHINE OPERATOR-THERAPEUTIC ACTIVITIES SERVICES WORKER LAB - CHEMISTRY ORDERABLES Performing Organization Address [facility] Co de Phone Number [address] [phone] * (ABNORMAL) VITAMIN B12 (10/19/2015 6:45 AM CDT) [facility] Vitamin B12 828(H) 213 - 816 pg/mL [facility] Blood specimen (specimen) BLOOD SPECIMEN / Unknown 10/19/2015 6:45 AM CDT 10/19/2015 6:57 AM CDT [place] SADDLE STITCHING MACHINE OPERATOR-THERAPEUTIC ACTIVITIES SERVICES WORKER LAB - CHEMISTRY ORDERABLES Performing Organization Address [facility] de Phone Number [address] [phone] * SODIUM URINE RANDOM (10/18/2015 3:12 PM CDT) [facility] Sodium Urine 52 Not Established mmol/L [facility] Urine specimen (specimen) URINE SPECIMEN OBTAINED BY CLEAN CATCH PROCEDURE / Unknown 10/18/2015 3:12 PM CDT 10/18/2015 3:19 PM CDT [place] SADDLE STITCHING MACHINE OPERATOR-THERAPEUTIC ACTIVITIES SERVICES WORKER LAB - URINE ZARINA TERE ORDERABLES Performing Organization Address [facility]/ZIP Co de Phone Number [address] [phone] * (ABNORMAL) OSMOLALITY URINE (10/18/2015 3:12 PM CDT) Osmolality Urine 294(L) 500 - 800 mOsm/kg [facility] Urine specimen (specimen) URINE SPECIMEN OBTAINED BY CLEAN CATCH PROCEDURE / Unknown 10/18/2015 3:12 PM CDT 10/18/2015 3:19 PM CDT [place] SADDLE STITCHING MACHINE OPERATOR-THERAPEUTIC ACTIVITIES SERVICES WORKER LAB - URINE ZARINA TERE ORDERABLES Performing Organization Address [facility] de Phone Number [address] [phone] * CREATININE URINE RANDOM (10/18/2015 3:12 PM CDT) Creatinine Urine 31 Not Established mg/dL [facility] Urine specimen (specimen) URINE SPECIMEN OBTAINED BY CLEAN CATCH PROCEDURE / Unknown 10/18/2015 3:12 PM CDT 10/18/2015 3:19 PM CDT [place] SADDLE STITCHING MACHINE OPERATOR-THERAPEUTIC ACTIVITIES SERVICES WORKER LAB - URINE ZARINA TERE ORDERABLES Performing Organization Address [facility] Co de Phone Number [address] [phone] * (ABNORMAL) POTASSIUM BLOOD (10/18/2015 12:30 PM CDT) Potassium 3.4(L) 3.5 - 4.5 mmol/L [facility] Blood specimen (specimen) BLOOD SPECIMEN / Unknown 10/18/2015 12:30 PM CDT 10/18/2015 12:38 PM CDT [place] SADDLE STITCHING MACHINE OPERATOR-THERAPEUTIC ACTIVITIES SERVICES WORKER LAB - CHEMISTRY ORDERABLES Performing Organization Address [facility]/ZIP Co de Phone Number [address] [phone] * (ABNORMAL) CORTISOL BLOOD AM (10/18/2015 12:30 PM CDT) Cortisol AM 29.1(H) 3.7 - 19.4 mcg/dL [facility] Blood specimen (specimen) BLOOD SPECIMEN / Unknown 10/18/2015 12:30 PM CDT 10/18/2015 3:39 PM CDT [place]un [place] SADDLE STITCHING MACHINE OPERATOR-THERAPEUTIC ACTIVITIES SERVICES WORKER LAB - CHEMISTRY ORDERABLES Performing Organization Address [facility] Co de Phone Number [address] [phone] * MAGNESIUM BLOOD (10/18/2015 4:58 AM CDT) Magnesium 2.0 1.6 - 2.6 mg/dL [facility] Blood specimen (specimen) BLOOD SPECIMEN / Unknown 10/18/2015 4:58 AM CDT 10/18/2015 7:50 AM CDT [place] R [place] SADDLE STITCHING MACHINE OPERATOR-THERAPEUTIC ACTIVITIES SERVICES WORKER LAB - CHEMISTRY ORDERABLES Performing Organization Address [facility] Co de Phone Number [address] [phone] * TSH (10/18/2015 4:58 AM CDT) TSH 4.342 0.350 - 4.940 uIU/mL [facility] Blood specimen (specimen) BLOOD SPECIMEN / Unknown 10/18/2015 4:58 AM CDT 10/18/2015 7:50 AM CDT [place] SADDLE STITCHING MACHINE OPERATOR-THERAPEUTIC ACTIVITIES SERVICES WORKER LAB - CHEMISTRY ORDERABLES Performing Organization Address [facility] Co de Phone Number [address] [phone] * CT ANGIO NECK (10/17/2015 3:36 AM CDT) Anatomical Region Laterality Modality Head Other Impressions 10/17/2015 10:39 AM CDT IMPRESSION: 1. No acute intracranial process. 2. Mildly displaced fracture extending through the left foramen transversarium of C2 into the body of the C2 vertebral body resulting in displacement of the base of the dens from the remainder C2 vertebral body, predominantly consistent with type III odontoid fracture. No angiographic evidence of traumatic arterial injury of the vertebral arteries in this region is identified. 3. Multiple chronic appearing healing and healed bilateral cervical fractures. No evidence of acute fracture in the thoracic, or lumbar spine. 4. 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 This report was approved by Gurpreet Madrid M.D. on 10/17/2015 9:04 AM . I, Dr. YASSINE SIDDIQI M.D. have personally reviewed and interpreted this examination/study. This report was electronically signed by YASSINE SIDDIQI M.D. on 10/17/2015 10:39 AM . Narrative 10/17/2015 10:39 AM CDT EXAMINATION: 1. Computed tomography (CT) of the head without contrast. CT of the neck with contrast was also performed. 2. CT of the cervical spine without contrast 3. CT of the thoracic spine without contrast 4. CT of the lumbar spine without contrast HISTORY: Headache, neck pain, back pain after fall. TECHNIQUE: CT of the head and cervical spine were performed without contrast according to standard protocol. Reformatted axial, sagittal, and coronal images of the thoracic and lumbar spine were obtained by the technologist from a concurrently performed body CT and sent to the workstation for review. Then CT angiography of the neck was obtained after the uneventful administration of 50 mL Omnipaque 350 intravenous contrast. Three dimensional postprocessing was performed by the technologist and sent to the workstation for review. FINDINGS: No prior study is available for comparison. Head: No acute intra- or extra-axial fluid collections are identified. There is mild cerebral volume loss with associated ex vacuo ventricular dilatation. The basilar cisterns are patent. No mass effect or midline shift is seen. The masterson-white matter differentiation is normal. Periventricular white matter hypoattenuation is indicative of chronic small vessel ischemic disease. There is vascular calcification of the carotid siphons. Other than bilateral lens replacements, the visualized portions of the orbits, paranasal sinuses, and mastoids appear normal. No acute fracture is identified. Angiographic findings: The aortic arch is tortuous. The configuration of the brachiocephalic vessels is typical. Other than bilateral tortuosity of the subclavian arteries, the innominate artery and both subclavian arteries appear normal. There is atherosclerotic calcification of the carotid bifurcations, left greater than right, with no significant focal stenosis. The common carotid arteries appear normal. The cervical internal carotid and vertebral arteries appear normal. Specifically the vertebral arteries demonstrate no definite evidence of traumatic injury or active contrast extravasation in the region of foramen transversarium at C2. The visible portions of the distal internal carotid artery appear atherosclerotic with no significant focal stenosis. Cervical spine: There is grade 1 C7-T1 anterolisthesis. There is a type III odontoid fracture with minimal displacement extending through the bilateral foramen transversarium into the right pedicle of C2. The distance between the lateral mass of C2 and C1 as well as the distance between the occipital condyles and the lateral masses of C1 are maintained. The craniocervical junction appears otherwise intact. There is reduced intervertebral disc space at multiple levels. Multilevel degenerative disc disease with ligamentum flavum hypertrophy contribute to mild central canal stenosis at C7- T1. Multilevel degenerative facet and uncovertebral joint osteoarthritis resulting in varying degrees of neuroforamina stenosis. Thoracic spine: There is mildly exaggerated thoracic kyphosis centered at T7-8. Mild thoracic scoliosis is also seen. Vertebral bodies are normal in height without evidence of acute fracture. Degenerative disc disease in the thoracic spine is most prominent at T12-L1. Calcification of the ligamentum flavum is seen in multiple levels. No central canal stenosis is seen. The facets appear normal. No neural foraminal stenosis is seen. The aorta is tortuous and atherosclerotic. The coronary arteries are atherosclerotic. The bones are diffusely osteopenic. Chronic-appearing healing and healed fracture deformities in the left first through sixth and right first and second ribs are seen. There is a healing right posterior 11th rib fracture in the region of costovertebral junction. Minimal dependent atelectasis is seen. Lumbar spine: L5 vertebral body is partially sacralized. There is mild T12-L1 retrolisthesis. There is dextrocurvature of the lumbar spine. No acute fracture in the vertebral bodies is seen. Advanced multilevel degenerative disc disease throughout the lumbar spine is seen, most prominent at T12-L1, through L2-L3. Mild central canal stenosis at L1-2 and L4-5 is present. Advanced bilateral L4-5 and L5-S1 facets osteoarthritis resulting in bist-hj-hnoqcxyl bilateral neural foramina stenosis these levels. The bones are diffusely osteopenic. Procedure Note Jair John MD - 08/14/2017 EXAMINATION: 1. Computed tomography (CT) of the head without contrast. CT of the neckwith contrast was also performed. 2. CT of the cervical spine without contrast 3. CT of the thoracic spine without contrast 4. CT of the lumbar spine without contrast HISTORY: Headache, neck pain, back pain after fall. TECHNIQUE: CT of the head and cervical spine were performed withoutcontrast according to standard protocol. Reformatted axial, sagittal, andcoronal images of the thoracic and lumbar spine were obtained by thetechnologist from a concurrently performed body CT and sent to the workstation for review. Then CT angiography of theneck was obtained after the uneventful administration of 50 mL [place]730 intravenous contrast. Three dimensional postprocessing was performedby the technologist and sent to the workstation for review. FINDINGS: No prior study is available for comparison. Head: No acute intra- or extra-axial fluid collections are identified. There ismild cerebral volume loss with associated ex vacuo ventricular dilatation.The basilar cisterns are patent. No mass effect or midline shift is seen.The masterson-white matter differentiation is normal. Periventricular white matter hypoattenuation isindicative of chronic small vessel ischemic disease. There is vascularcalcification of the carotid siphons. Other than bilateral lensreplacements, the visualized portions of the orbits, paranasal sinuses, and mastoids appear normal. No acute fractureis identified. Angiographic findings: The aortic arch is tortuous. The configuration of the brachiocephalicvessels is typical. Other than bilateral tortuosity of the subclavianarteries, the innominate artery and both subclavian arteries appearnormal. There is atherosclerotic calcification of the carotid bifurcations, left greater than right, with no significantfocal stenosis. The common carotid arteries appear normal. The cervicalinternal carotid and vertebral arteries appear normal. Specifically thevertebral arteries demonstrate no definite evidence of traumatic injury or active contrast extravasation inthe region of foramen transversarium at C2. The visible portions of thedistal internal carotid artery appear atherosclerotic with no significantfocal stenosis. Cervical spine: There is grade 1 C7-T1 anterolisthesis. There is a type III odontoidfracture with minimal displacement extending through the bilateral foramentransversarium into the right pedicle of C2. The distance between thelateral mass of C2 and C1 as well as the distance between the occipital condyles and the lateral masses of C1 aremaintained. The craniocervical junction appears otherwise intact. There isreduced intervertebral disc space at multiple levels. Multileveldegenerative disc disease with ligamentum flavum hypertrophy contribute to mild central canal stenosis atC7-T1. Multilevel degenerative facet and uncovertebral jointosteoarthritis resulting in varying degrees of neuroforamina stenosis. Thoracic spine: There is mildly exaggerated thoracic kyphosis centered at T7-8. Mildthoracic scoliosis is also seen. Vertebral bodies are normal in heightwithout evidence of acute fracture. Degenerative disc disease in thethoracic spine is most prominent at T12-L1. Calcification of the ligamentum flavum is seen in multiple levels. Nocentral canal stenosis is seen. The facets appear normal. No neuralforaminal stenosis is seen. The aorta is tortuous and atherosclerotic. Thecoronary arteries are atherosclerotic. The bones are diffusely osteopenic. Chronic-appearing healing and healedfracture deformities in the left first through sixth and right first andsecond ribs are seen. There is a healing right posterior 11th rib fracturein the region of costovertebral junction. Minimal dependent atelectasis is seen. Lumbar spine: L5 vertebral body is partially sacralized. There is mild [id number]. There is dextrocurvature of the lumbar spine. No acutefracture in the vertebral bodies is seen. Advanced multileveldegenerative disc disease throughout the lumbar spine is seen, most prominent at T12-L1, through L2-L3. Mild central canalstenosis at L1- 2 and L4-5 is present. Advanced bilateral L4-5 and L5-X3ioytbz osteoarthritis resulting in yagx-sb-nczsuqlp bilateral neuralforamina stenosis these levels. The bones are diffusely osteopenic. IMPRESSION IMPRESSION: 1. No acute intracranial process. 2. Mildly displaced fracture extending through the left foramentransversarium of C2 into the body of the C2 vertebral body resulting indisplacement of the base of the dens from the remainder C2 vertebral body,predominantly consistent with type III odontoid fracture. No angiographic evidence of traumatic arterial injuryof the vertebral arteries in this region is identified. 3. Multiple chronic appearing healing and healed bilateral cervicalfractures. No evidence of acute fracture in the thoracic, or lumbarspine. 4. Advanced multilevel degenerative disc and joint disease throughout thespine. This report was approved by Gurpreet Madrid M.D. on 10/17/2015 9:[address] YASSINE Wyman M.D. have personally reviewed and interpreted thisexamination/study. This report was electronically signed by YASSINE SIDDIQI M.D. on 10/17/201510:39 AM . Lance Sky MD CT ORDERABLES * XR PELVIS 1 OR 2VW (10/16/2015 11:41 PM CDT) Anatomical Region Laterality Modality Pelvis Other Impressions 10/17/2015 12:16 PM CDT IMPRESSION: No acute osseous injury. Dictated by David Jose MD ([employer]) This report was approved by Oscar Jose on 10/17/2015 11:[address] SHANNON Wyman M.D. have personally reviewed and interpreted this examination/study. This report was electronically signed by SHANNON PABLO M.D. on 10/17/2015 12:16 PM . Narrative 10/17/2015 12:16 PM CDT Exam: PX PELVIS 1 OR 2 VW Date: 10/16/2015 11:41 PM History: trauma Comparison: None Findings: There is no fracture or dislocation. Mild degenerative changes of the hip joints and lumbar spine are seen. There is no diastasis at the sacroiliac joints or pubic symphysis. The bones are osteopenic. Soft tissues are normal. Procedure Note Shannon Pablo MD - 08/14/2017 Exam: PX PELVIS 1 OR 2 VW Date: 10/16/2015 11:41 PM History: trauma Comparison: None Findings: There is no fracture or dislocation. Mild degenerative changes of the hipjoints and lumbar spine are seen. There is no diastasis at the sacroiliacjoints or pubic symphysis. The bones are osteopenic. Soft tissues arenormal. IMPRESSION IMPRESSION: No acute osseous injury. Dictated by David Jose MD ([employer]) This report was approved by Oscar Jose on 10/17/2015 11:27 AM . I, Dr. SHANNON PABLO M.D. have personally reviewed and interpreted thisexamination/study. This report was electronically signed by SHANNON PABLO M.D. on 10/17/201512:16 PM . Josy Sr MD DIAGNOSTIC IMAGING O RDERABLES * DRUG ABUSE PANEL 10-20+ETHANOL URINE NO CONFIRM (10/16/2015 11:40 PM CDT) Amphetamines Screen Urine Negative Negative: < 1000 ng/mL [facility] Barbiturates Screen Urine Negative Negative: < 200 ng/mL [facility] Benzodiazepine Screen Urine Negative Negative: < 200 ng/mL [facility] Opiates Urine Negative Negative: < 300 ng/mL [facility] Cocaine Metabolites Urine Negative Negative: < 300 ng/mL [facility] Phencyclidine Screen Urine Negative Negative: < 25 ng/ml [facility] Cannabinoids Screen Urine Negative Negative: <50 ng/mL [facility] Methadone Screen Urine Negative Negative: < 300 ng/mL [facility] Urine specimen (specimen) 10/16/2015 11:40 PM CDT 10/16/2015 11:46 PM CDT Narrative [facility] - 10/17/2015 12:09 AM CDT The Urine Toxicology Screening Panel does not screen for Propoxyphene, Meprobamate, Carisoprodol, Trazodone, voof-vvf-ypscaml medications and/or volatiles (Acetone, Isopropanol, Methanol or Ethylene Glycol). Ethanol, Salicylate, Acetaminophen, Tricyclic Antidepressants and several therapeutic drugs may be individually assayed in serum or plasma specimen. Toxicology testing by the [facility] is an aid to medical diagnosis and treatment of patients. No documented chain of custody was maintained. Results are intended to be used for clinical purposes only. Josy Sr MD LAB - URINE CHEMISTR Y ORDERABLES [facility] [address] [place] [address] * URINALYSIS REFLEX TO MICROSCOPIC NO CULTURE (10/16/2015 11:40 PM CDT) Color UA Straw Straw, Yellow, Colorless, Light Yellow [facility] Clarity UA Clear Clear [facility] Specific [place] UA 1.007 1.001 - 1.030 [facility] pH UA 8.0 5.0 - 8.0 [facility] Protein UA Negative <=20 mg/dL [facility] Glucose UA Negative Negative mg/dL [facility] Ketone UA Negative Negative mg/dL [facility] Bilirubin UA Negative Negative mg/dL [facility] Blood UA Negative Negative [facility] Nitrite UA Negative Negative [facility] Leukocyte Esterase Negative Negative [facility] Urobilinogen UA <2.0 <2.0 mg/dL [facility] RBC UA 2 0 - 8 /HPF [facility] WBC UA 2 0 - 2 /HPF [facility] Squamous Epithelial Cells UA <1 0 - 1 /HPF [facility] Urine specimen (specimen) 10/16/2015 11:40 PM CDT 10/16/2015 11:47 PM CDT Josy Sr MD LAB - URINALYSIS ORD ERABLES [address] [phone] * CT CHEST ABDOMEN PELVIS WO CONT (10/16/2015 10:30 PM CDT) Anatomical Region Laterality Modality Chest, Abdomen, Pelvis Other Impressions 10/17/2015 12:28 PM CDT IMPRESSION: 1. Diffuse osteopenia with age indeterminate, but likely subacute or chronic, fractures of the right second, third, and eighth anterolateral ribs, and the right 11th posterior rib, as well as multiple additional chronic appearing rib fractures. 2. No acute visceral or vascular injury in the chest, abdomen, or pelvis. 3. A 4 mm right lower lobe nodule is indeterminate. If the patient has risk factors such as smoking, follow-up chest CT in one year is recommended. Report dictated by Celi Lo M.D. I, Dr. SYMONE CONDE M.D. have personally reviewed and interpreted this examination/study. This report was electronically signed by SYMONE CONDE M.D. on 10/17/2015 12:28 PM . Narrative 10/17/2015 12:28 PM CDT EXAMINATION: Computed tomography (CT) of the chest, abdomen, and pelvis without contrast HISTORY: Pain after fall TECHNIQUE: CT of the chest, abdomen, and pelvis was performed without contrast according to standard protocol. COMPARISON: No prior study is available for comparison. FINDINGS: Evaluation of visceral and vascular structures is limited due to lack of intravenous contrast. Vascular: There is a left-sided three-vessel aortic arch. There is moderate atherosclerotic calcification of the aorta and coronary arteries. Otherwise, the unenhanced aorta is normal in course and caliber. The main pulmonary artery is nondilated. Chest: Dependent atelectasis is present bilaterally. The lungs are otherwise clear of focal consolidation. No pleural effusion or focal pleural thickening is identified. There is no evidence of pneumothorax. A 4 mm nodule is noted within the right lower lobe (series 4 image 72). The trachea is patent and midline. The heart size is normal. No pericardial effusion is present. No mediastinal, hilar, supraclavicular, or axillary lymphadenopathy is seen. The thyroid gland is normal. Abdomen/Pelvis: The liver appears normal. No focal intrahepatic lesions are seen within the limitation of a non-contrast enhanced examination. The gallbladder is normal without evidence of wall thickening, pericholecystic fluid, or gallstones. The intrahepatic and extrahepatic bile ducts are nondilated. The spleen is normal without focal lesions. The pancreas and adrenal glands are normal. The kidneys are normal. There is a 1.2 cm cyst in the superior pole of the right kidney. There is no evidence of renal calculi, hydronephrosis, or hydroureter. The esophagus and stomach appear normal. The small bowel and large bowel are normal in caliber without evidence of wall thickening or obstruction. The appendix is not visualized; however, no inflammatory changes are seen in the right lower quadrant. No free air or free fluid is identified within the abdomen. There is no abdominal or pelvic lymphadenopathy within the limitations of a noncontrast study. The bladder is distended with fluid and appears normal. The uterus is present. No free fluid is seen within the pelvis. Osseous: Bone windows demonstrate no suspicious lytic or blastic lesions. Diffuse osteopenia is present. There are age-indeterminate, but likely subacute or chronic, fractures of the right second, third, and eighth anterolateral ribs as well as the right 11th posterior rib at the costovertebral junction. Chronic deformities are also seen at the first ribs bilaterally, right posterior second rib, in the posterior left second through sixth ribs. There is thoracolumbar scoliosis with multilevel degenerative changes in the spine. Procedure Note Symone Conde MD - 08/14/2017 EXAMINATION: Computed tomography (CT) of the chest, abdomen, and pelviswithout contrast HISTORY: Pain after fall TECHNIQUE: CT of the chest, abdomen, and pelvis was performed withoutcontrast according to standard protocol. COMPARISON: No prior study is available for comparison. FINDINGS: Evaluation of visceral and vascular structures is limited due to lack ofintravenous contrast. Vascular: There is a left-sided three-vessel aortic arch. There is moderateatherosclerotic calcification of the aorta and coronary arteries.Otherwise, the unenhanced aorta is normal in course and caliber. The mainpulmonary artery is nondilated. Chest: Dependent atelectasis is present bilaterally. The lungs are otherwiseclear of focal consolidation. No pleural effusion or focal pleuralthickening is identified. There is no evidence of pneumothorax. A 4 mmnodule is noted within the right lower lobe (series 4 image 72). The trachea is patent and midline. The heart size is normal. No pericardial effusion is present. Nomediastinal, hilar, supraclavicular, or axillary lymphadenopathy is seen.The thyroid gland is normal. Abdomen/Pelvis: The liver appears normal. No focal intrahepatic lesions are seen withinthe limitation of a non-contrast enhanced examination. The gallbladder isnormal without evidence of wall thickening, pericholecystic fluid, orgallstones. The intrahepatic and extrahepatic bile ducts are nondilated. The spleen is normal without focallesions. The pancreas and adrenal glands are normal. The kidneys arenormal. There is a 1.2 cm cyst in the superior pole of the right kidney.There is no evidence of renal calculi, hydronephrosis, or hydroureter. The esophagus and stomach appear normal. The small bowel and large bowelare normal in caliber without evidence of wall thickening or obstruction.The appendix is not visualized; however, no inflammatory changes are seenin the right lower quadrant. No free air or free fluid is identified within the abdomen. There is noabdominal or pelvic lymphadenopathy within the limitations of anoncontrast study. The bladder is distended with fluid and appears normal. The uterus ispresent. No free fluid is seen within the pelvis. Osseous: Bone windows demonstrate no suspicious lytic or blastic lesions. Diffuseosteopenia is present. There are age-indeterminate, but likely subacute orchronic, fractures of the right second, third, and eighth anterolateralribs as well as the right 11th posterior rib at the costovertebral junction. Chronic deformities are alsoseen at the first ribs bilaterally, right posterior second rib, in theposterior left second through sixth ribs. There is thoracolumbar scoliosiswith multilevel degenerative changes in the spine. IMPRESSION IMPRESSION: 1. Diffuse osteopenia with age indeterminate, but likely subacute orchronic, fractures of the right second, third, and eighth anterolateralribs, and the right 11th posterior rib, as well as multiple additionalchronic appearing rib fractures. 2. No acute visceral or vascular injury in the chest, abdomen, orpelvis. 3. A 4 mm right lower lobe nodule is indeterminate. If the patient hasrisk factors such as smoking, follow-up chest CT in one year isrecommended. Report dictated by Celi Lo M.D. I, Dr. SYMONE CONDE M.D. have personally reviewed and interpreted thisexamination/study. This report was electronically signed by SYMONE CONDE M.D. on 10/17/201512:28 PM . Josy Sr MD CT ORDERABLES * CT LUMBAR SPINE WO CONTRAST (10/16/2015 10:30 PM CDT) Anatomical Region Laterality Modality Spine Other Impressions 10/17/2015 10:39 AM CDT IMPRESSION: 1. No acute intracranial process. 2. Mildly displaced fracture extending through the left foramen transversarium of C2 into the body of the C2 vertebral body resulting in displacement of the base of the dens from the remainder C2 vertebral body, predominantly consistent with type III odontoid fracture. No angiographic evidence of traumatic arterial injury of the vertebral arteries in this region is identified. 3. Multiple chronic appearing healing and healed bilateral cervical fractures. No evidence of acute fracture in the thoracic, or lumbar spine. 4. 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 This report was approved by Gurpreet Madrid M.D. on 10/17/2015 9:04 AM . I, Dr. YASSINE SIDDIQI M.D. have personally reviewed and interpreted this examination/study. This report was electronically signed by YASSINE SIDDIQI M.D. on 10/17/2015 10:39 AM . Narrative 10/17/2015 10:39 AM CDT EXAMINATION: 1. Computed tomography (CT) of the head without contrast. CT of the neck with contrast was also performed. 2. CT of the cervical spine without contrast 3. CT of the thoracic spine without contrast 4. CT of the lumbar spine without contrast HISTORY: Headache, neck pain, back pain after fall. TECHNIQUE: CT of the head and cervical spine were performed without contrast according to standard protocol. Reformatted axial, sagittal, and coronal images of the thoracic and lumbar spine were obtained by the technologist from a concurrently performed body CT and sent to the workstation for review. Then CT angiography of the neck was obtained after the uneventful administration of 50 mL Omnipaque 350 intravenous contrast. Three dimensional postprocessing was performed by the technologist and sent to the workstation for review. FINDINGS: No prior study is available for comparison. Head: No acute intra- or extra-axial fluid collections are identified. There is mild cerebral volume loss with associated ex vacuo ventricular dilatation. The basilar cisterns are patent. No mass effect or midline shift is seen. The masterson-white matter differentiation is normal. Periventricular white matter hypoattenuation is indicative of chronic small vessel ischemic disease. There is vascular calcification of the carotid siphons. Other than bilateral lens replacements, the visualized portions of the orbits, paranasal sinuses, and mastoids appear normal. No acute fracture is identified. Angiographic findings: The aortic arch is tortuous. The configuration of the brachiocephalic vessels is typical. Other than bilateral tortuosity of the subclavian arteries, the innominate artery and both subclavian arteries appear normal. There is atherosclerotic calcification of the carotid bifurcations, left greater than right, with no significant focal stenosis. The common carotid arteries appear normal. The cervical internal carotid and vertebral arteries appear normal. Specifically the vertebral arteries demonstrate no definite evidence of traumatic injury or active contrast extravasation in the region of foramen transversarium at C2. The visible portions of the distal internal carotid artery appear atherosclerotic with no significant focal stenosis. Cervical spine: There is grade 1 C7-T1 anterolisthesis. There is a type III odontoid fracture with minimal displacement extending through the bilateral foramen transversarium into the right pedicle of C2. The distance between the lateral mass of C2 and C1 as well as the distance between the occipital condyles and the lateral masses of C1 are maintained. The craniocervical junction appears otherwise intact. There is reduced intervertebral disc space at multiple levels. Multilevel degenerative disc disease with ligamentum flavum hypertrophy contribute to mild central canal stenosis at C7- T1. Multilevel degenerative facet and uncovertebral joint osteoarthritis resulting in varying degrees of neuroforamina stenosis. Thoracic spine: There is mildly exaggerated thoracic kyphosis centered at T7-8. Mild thoracic scoliosis is also seen. Vertebral bodies are normal in height without evidence of acute fracture. Degenerative disc disease in the thoracic spine is most prominent at T12-L1. Calcification of the ligamentum flavum is seen in multiple levels. No central canal stenosis is seen. The facets appear normal. No neural foraminal stenosis is seen. The aorta is tortuous and atherosclerotic. The coronary arteries are atherosclerotic. The bones are diffusely osteopenic. Chronic-appearing healing and healed fracture deformities in the left first through sixth and right first and second ribs are seen. There is a healing right posterior 11th rib fracture in the region of costovertebral junction. Minimal dependent atelectasis is seen. Lumbar spine: L5 vertebral body is partially sacralized. There is mild T12-L1 retrolisthesis. There is dextrocurvature of the lumbar spine. No acute fracture in the vertebral bodies is seen. Advanced multilevel degenerative disc disease throughout the lumbar spine is seen, most prominent at T12-L1, through L2-L3. Mild central canal stenosis at L1-2 and L4-5 is present. Advanced bilateral L4-5 and L5-S1 facets osteoarthritis resulting in [id number] bilateral neural foramina stenosis these levels. The bones are diffusely osteopenic. Procedure Note Jair John MD - 08/14/2017 EXAMINATION: 1. Computed tomography (CT) of the head without contrast. CT of the neckwith contrast was also performed. 2. CT of the cervical spine without contrast 3. CT of the thoracic spine without contrast 4. CT of the lumbar spine without contrast HISTORY: Headache, neck pain, back pain after fall. TECHNIQUE: CT of the head and cervical spine were performed withoutcontrast according to standard protocol. Reformatted axial, sagittal, andcoronal images of the thoracic and lumbar spine were obtained by thetechnologist from a concurrently performed body CT and sent to the workstation for review. Then CT angiography of theneck was obtained after the uneventful administration of 50 mL Goquhegut364 intravenous contrast. Three dimensional postprocessing was performedby the technologist and sent to the workstation for review. FINDINGS: No prior study is available for comparison. Head: No acute intra- or extra-axial fluid collections are identified. There ismild cerebral volume loss with associated ex vacuo ventricular dilatation.The basilar cisterns are patent. No mass effect or midline shift is seen.The masterson-white matter differentiation is normal. Periventricular white matter hypoattenuation isindicative of chronic small vessel ischemic disease. There is vascularcalcification of the carotid siphons. Other than bilateral lensreplacements, the visualized portions of the orbits, paranasal sinuses, and mastoids appear normal. No acute fractureis identified. Angiographic findings: The aortic arch is tortuous. The configuration of the brachiocephalicvessels is typical. Other than bilateral tortuosity of the subclavianarteries, the innominate artery and both subclavian arteries appearnormal. There is atherosclerotic calcification of the carotid bifurcations, left greater than right, with no significantfocal stenosis. The common carotid arteries appear normal. The cervicalinternal carotid and vertebral arteries appear normal. Specifically thevertebral arteries demonstrate no definite evidence of traumatic injury or active contrast extravasation inthe region of foramen transversarium at C2. The visible portions of thedistal internal carotid artery appear atherosclerotic with no significantfocal stenosis. Cervical spine: There is grade 1 C7-T1 anterolisthesis. There is a type III odontoidfracture with minimal displacement extending through the bilateral foramentransversarium into the right pedicle of C2. The distance between thelateral mass of C2 and C1 as well as the distance between the occipital condyles and the lateral masses of C1 aremaintained. The craniocervical junction appears otherwise intact. There isreduced intervertebral disc space at multiple levels. Multileveldegenerative disc disease with ligamentum flavum hypertrophy contribute to mild central canal stenosis atC7-T1. Multilevel degenerative facet and uncovertebral jointosteoarthritis resulting in varying degrees of neuroforamina stenosis. Thoracic spine: There is mildly exaggerated thoracic kyphosis centered at T7-8. Mildthoracic scoliosis is also seen. Vertebral bodies are normal in heightwithout evidence of acute fracture. Degenerative disc disease in thethoracic spine is most prominent at T12-L1. Calcification of the ligamentum flavum is seen in multiple levels. Nocentral canal stenosis is seen. The facets appear normal. No neuralforaminal stenosis is seen. The aorta is tortuous and atherosclerotic. Thecoronary arteries are atherosclerotic. The bones are diffusely osteopenic. Chronic-appearing healing and healedfracture deformities in the left first through sixth and right first andsecond ribs are seen. There is a healing right posterior 11th rib fracturein the region of costovertebral junction. Minimal dependent atelectasis is seen. Lumbar spine: L5 vertebral body is partially sacralized. There is mild [id number]. There is dextrocurvature of the lumbar spine. No acutefracture in the vertebral bodies is seen. Advanced multileveldegenerative disc disease throughout the lumbar spine is seen, most prominent at T12-L1, through L2-L3. Mild central canalstenosis at L1- 2 and L4-5 is present. Advanced bilateral L4-5 and L5-[id number] osteoarthritis resulting in [id number] bilateral neuralforamina stenosis these levels. The bones are diffusely osteopenic. IMPRESSION IMPRESSION: 1. No acute intracranial process. 2. Mildly displaced fracture extending through the left foramentransversarium of C2 into the body of the C2 vertebral body resulting indisplacement of the base of the dens from the remainder C2 vertebral body,predominantly consistent with type III odontoid fracture. No angiographic evidence of traumatic arterial injuryof the vertebral arteries in this region is identified. 3. Multiple chronic appearing healing and healed bilateral cervicalfractures. No evidence of acute fracture in the thoracic, or lumbarspine. 4. Advanced multilevel degenerative disc and joint disease throughout thespine. This report was approved by Gurpreet Madrid M.D. on 10/17/2015 9:[address] YASSINE Wyman M.D. have personally reviewed and interpreted thisexamination/study. This report was electronically signed by YASSINE SIDDIQI M.D. on 10/17/201510:39 AM . Josy Sr MD CT ORDERABLES * CT THORACIC SPINE WO CONTRAST (10/16/2015 10:30 PM CDT) Anatomical Region Laterality Modality Spine Other Impressions 10/17/2015 10:39 AM CDT IMPRESSION: 1. No acute intracranial process. 2. Mildly displaced fracture extending through the left foramen transversarium of C2 into the body of the C2 vertebral body resulting in displacement of the base of the dens from the remainder C2 vertebral body, predominantly consistent with type III odontoid fracture. No angiographic evidence of traumatic arterial injury of the vertebral arteries in this region is identified. 3. Multiple chronic appearing healing and healed bilateral cervical fractures. No evidence of acute fracture in the thoracic, or lumbar spine. 4. 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 This report was approved by Gurpreet Madrid M.D. on 10/17/2015 9:04 AM . IDr. YASSINE M.D. have personally reviewed and interpreted this examination/study. This report was electronically signed by YASSINE SIDDIQI M.D. on 10/17/2015 10:39 AM . Narrative 10/17/2015 10:39 AM CDT EXAMINATION: 1. Computed tomography (CT) of the head without contrast. CT of the neck with contrast was also performed. 2. CT of the cervical spine without contrast 3. CT of the thoracic spine without contrast 4. CT of the lumbar spine without contrast HISTORY: Headache, neck pain, back pain after fall. TECHNIQUE: CT of the head and cervical spine were performed without contrast according to standard protocol. Reformatted axial, sagittal, and coronal images of the thoracic and lumbar spine were obtained by the technologist from a concurrently performed body CT and sent to the workstation for review. Then CT angiography of the neck was obtained after the uneventful administration of 50 mL Omnipaque 350 intravenous contrast. Three dimensional postprocessing was performed by the technologist and sent to the workstation for review. FINDINGS: No prior study is available for comparison. Head: No acute intra- or extra-axial fluid collections are identified. There is mild cerebral volume loss with associated ex vacuo ventricular dilatation. The basilar cisterns are patent. No mass effect or midline shift is seen. The masterson-white matter differentiation is normal. Periventricular white matter hypoattenuation is indicative of chronic small vessel ischemic disease. There is vascular calcification of the carotid siphons. Other than bilateral lens replacements, the visualized portions of the orbits, paranasal sinuses, and mastoids appear normal. No acute fracture is identified. Angiographic findings: The aortic arch is tortuous. The configuration of the brachiocephalic vessels is typical. Other than bilateral tortuosity of the subclavian arteries, the innominate artery and both subclavian arteries appear normal. There is atherosclerotic calcification of the carotid bifurcations, left greater than right, with no significant focal stenosis. The common carotid arteries appear normal. The cervical internal carotid and vertebral arteries appear normal. Specifically the vertebral arteries demonstrate no definite evidence of traumatic injury or active contrast extravasation in the region of foramen transversarium at C2. The visible portions of the distal internal carotid artery appear atherosclerotic with no significant focal stenosis. Cervical spine: There is grade 1 C7-T1 anterolisthesis. There is a type III odontoid fracture with minimal displacement extending through the bilateral foramen transversarium into the right pedicle of C2. The distance between the lateral mass of C2 and C1 as well as the distance between the occipital condyles and the lateral masses of C1 are maintained. The craniocervical junction appears otherwise intact. There is reduced intervertebral disc space at multiple levels. Multilevel degenerative disc disease with ligamentum flavum hypertrophy contribute to mild central canal stenosis at C7- T1. Multilevel degenerative facet and uncovertebral joint osteoarthritis resulting in varying degrees of neuroforamina stenosis. Thoracic spine: There is mildly exaggerated thoracic kyphosis centered at T7-8. Mild thoracic scoliosis is also seen. Vertebral bodies are normal in height without evidence of acute fracture. Degenerative disc disease in the thoracic spine is most prominent at T12-L1. Calcification of the ligamentum flavum is seen in multiple levels. No central canal stenosis is seen. The facets appear normal. No neural foraminal stenosis is seen. The aorta is tortuous and atherosclerotic. The coronary arteries are atherosclerotic. The bones are diffusely osteopenic. Chronic-appearing healing and healed fracture deformities in the left first through sixth and right first and second ribs are seen. There is a healing right posterior 11th rib fracture in the region of costovertebral junction. Minimal dependent atelectasis is seen. Lumbar spine: L5 vertebral body is partially sacralized. There is mild T12-L1 retrolisthesis. There is dextrocurvature of the lumbar spine. No acute fracture in the vertebral bodies is seen. Advanced multilevel degenerative disc disease throughout the lumbar spine is seen, most prominent at T12-L1, through L2-L3. Mild central canal stenosis at L1-2 and L4-5 is present. Advanced bilateral L4-5 and L5-S1 facets osteoarthritis resulting in [id number] bilateral neural foramina stenosis these levels. The bones are diffusely osteopenic. Procedure Note Jair John MD - 08/14/2017 EXAMINATION: 1. Computed tomography (CT) of the head without contrast. CT of the neckwith contrast was also performed. 2. CT of the cervical spine without contrast 3. CT of the thoracic spine without contrast 4. CT of the lumbar spine without contrast HISTORY: Headache, neck pain, back pain after fall. TECHNIQUE: CT of the head and cervical spine were performed withoutcontrast according to standard protocol. Reformatted axial, sagittal, andcoronal images of the thoracic and lumbar spine were obtained by thetechnologist from a concurrently performed body CT and sent to the workstation for review. Then CT angiography of theneck was obtained after the uneventful administration of 50 mL Gknvarast362 intravenous contrast. Three dimensional postprocessing was performedby the technologist and sent to the workstation for review. FINDINGS: No prior study is available for comparison. Head: No acute intra- or extra-axial fluid collections are identified. There ismild cerebral volume loss with associated ex vacuo ventricular dilatation.The basilar cisterns are patent. No mass effect or midline shift is seen.The masterson-white matter differentiation is normal. Periventricular white matter hypoattenuation isindicative of chronic small vessel ischemic disease. There is vascularcalcification of the carotid siphons. Other than bilateral lensreplacements, the visualized portions of the orbits, paranasal sinuses, and mastoids appear normal. No acute fractureis identified. Angiographic findings: The aortic arch is tortuous. The configuration of the brachiocephalicvessels is typical. Other than bilateral tortuosity of the subclavianarteries, the innominate artery and both subclavian arteries appearnormal. There is atherosclerotic calcification of the carotid bifurcations, left greater than right, with no significantfocal stenosis. The common carotid arteries appear normal. The cervicalinternal carotid and vertebral arteries appear normal. Specifically thevertebral arteries demonstrate no definite evidence of traumatic injury or active contrast extravasation inthe region of foramen transversarium at C2. The visible portions of thedistal internal carotid artery appear atherosclerotic with no significantfocal stenosis. Cervical spine: There is grade 1 C7-T1 anterolisthesis. There is a type III odontoidfracture with minimal displacement extending through the bilateral foramentransversarium into the right pedicle of C2. The distance between thelateral mass of C2 and C1 as well as the distance between the occipital condyles and the lateral masses of C1 aremaintained. The craniocervical junction appears otherwise intact. There isreduced intervertebral disc space at multiple levels. Multileveldegenerative disc disease with ligamentum flavum hypertrophy contribute to mild central canal stenosis atC7-T1. Multilevel degenerative facet and uncovertebral jointosteoarthritis resulting in varying degrees of neuroforamina stenosis. Thoracic spine: There is mildly exaggerated thoracic kyphosis centered at T7-8. Mildthoracic scoliosis is also seen. Vertebral bodies are normal in heightwithout evidence of acute fracture. Degenerative disc disease in thethoracic spine is most prominent at T12-L1. Calcification of the ligamentum flavum is seen in multiple levels. Nocentral canal stenosis is seen. The facets appear normal. No neuralforaminal stenosis is seen. The aorta is tortuous and atherosclerotic. Thecoronary arteries are atherosclerotic. The bones are diffusely osteopenic. Chronic-appearing healing and healedfracture deformities in the left first through sixth and right first andsecond ribs are seen. There is a healing right posterior 11th rib fracturein the region of costovertebral junction. Minimal dependent atelectasis is seen. Lumbar spine: L5 vertebral body is partially sacralized. There is mild [id number]. There is dextrocurvature of the lumbar spine. No acutefracture in the vertebral bodies is seen. Advanced multileveldegenerative disc disease throughout the lumbar spine is seen, most prominent at T12-L1, through L2-L3. Mild central canalstenosis at L1- 2 and L4-5 is present. Advanced bilateral L4-5 and L5-X9rfrdew osteoarthritis resulting in [id number]-ic-[id number] bilateral neuralforamina stenosis these levels. The bones are diffusely osteopenic. IMPRESSION IMPRESSION: 1. No acute intracranial process. 2. Mildly displaced fracture extending through the left foramentransversarium of C2 into the body of the C2 vertebral body resulting indisplacement of the base of the dens from the remainder C2 vertebral body,predominantly consistent with type III odontoid fracture. No angiographic evidence of traumatic arterial injuryof the vertebral arteries in this region is identified. 3. Multiple chronic appearing healing and healed bilateral cervicalfractures. No evidence of acute fracture in the thoracic, or lumbarspine. 4. Advanced multilevel degenerative disc and joint disease throughout thespine. This report was approved by Gurpreet Madrid M.D. on 10/17/2015 9:[address] YASSINE Wyman M.D. have personally reviewed and interpreted thisexamination/study. This report was electronically signed by YASSINE SIDDIQI M.D. on 10/17/201510:39 AM . Josy Sr MD CT ORDERABLES * CT CERVICAL SPINE WO CONTRAST (10/16/2015 10:30 PM CDT) Anatomical Region Laterality Modality Spine Other Impressions 10/17/2015 10:39 AM CDT IMPRESSION: 1. No acute intracranial process. 2. Mildly displaced fracture extending through the left foramen transversarium of C2 into the body of the C2 vertebral body resulting in displacement of the base of the dens from the remainder C2 vertebral body, predominantly consistent with type III odontoid fracture. No angiographic evidence of traumatic arterial injury of the vertebral arteries in this region is identified. 3. Multiple chronic appearing healing and healed bilateral cervical fractures. No evidence of acute fracture in the thoracic, or lumbar spine. 4. 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 This report was approved by Gurpreet Madrid M.D. on 10/17/2015 9:[address] YASSINE Wyman M.D. have personally reviewed and interpreted this examination/study. This report was electronically signed by YASSINE SIDDIQI M.D. on 10/17/2015 10:39 AM . Narrative 10/17/2015 10:39 AM CDT EXAMINATION: 1. Computed tomography (CT) of the head without contrast. CT of the neck with contrast was also performed. 2. CT of the cervical spine without contrast 3. CT of the thoracic spine without contrast 4. CT of the lumbar spine without contrast HISTORY: Headache, neck pain, back pain after fall. TECHNIQUE: CT of the head and cervical spine were performed without contrast according to standard protocol. Reformatted axial, sagittal, and coronal images of the thoracic and lumbar spine were obtained by the technologist from a concurrently performed body CT and sent to the workstation for review. Then CT angiography of the neck was obtained after the uneventful administration of 50 mL Omnipaque 350 intravenous contrast. Three dimensional postprocessing was performed by the technologist and sent to the workstation for review. FINDINGS: No prior study is available for comparison. Head: No acute intra- or extra-axial fluid collections are identified. There is mild cerebral volume loss with associated ex vacuo ventricular dilatation. The basilar cisterns are patent. No mass effect or midline shift is seen. The masterson-white matter differentiation is normal. Periventricular white matter hypoattenuation is indicative of chronic small vessel ischemic disease. There is vascular calcification of the carotid siphons. Other than bilateral lens replacements, the visualized portions of the orbits, paranasal sinuses, and mastoids appear normal. No acute fracture is identified. Angiographic findings: The aortic arch is tortuous. The configuration of the brachiocephalic vessels is typical. Other than bilateral tortuosity of the subclavian arteries, the innominate artery and both subclavian arteries appear normal. There is atherosclerotic calcification of the carotid bifurcations, left greater than right, with no significant focal stenosis. The common carotid arteries appear normal. The cervical internal carotid and vertebral arteries appear normal. Specifically the vertebral arteries demonstrate no definite evidence of traumatic injury or active contrast extravasation in the region of foramen transversarium at C2. The visible portions of the distal internal carotid artery appear atherosclerotic with no significant focal stenosis. Cervical spine: There is grade 1 C7-T1 anterolisthesis. There is a type III odontoid fracture with minimal displacement extending through the bilateral foramen transversarium into the right pedicle of C2. The distance between the lateral mass of C2 and C1 as well as the distance between the occipital condyles and the lateral masses of C1 are maintained. The craniocervical junction appears otherwise intact. There is reduced intervertebral disc space at multiple levels. Multilevel degenerative disc disease with ligamentum flavum hypertrophy contribute to mild central canal stenosis at C7- T1. Multilevel degenerative facet and uncovertebral joint osteoarthritis resulting in varying degrees of neuroforamina stenosis. Thoracic spine: There is mildly exaggerated thoracic kyphosis centered at T7-8. Mild thoracic scoliosis is also seen. Vertebral bodies are normal in height without evidence of acute fracture. Degenerative disc disease in the thoracic spine is most prominent at T12-L1. Calcification of the ligamentum flavum is seen in multiple levels. No central canal stenosis is seen. The facets appear normal. No neural foraminal stenosis is seen. The aorta is tortuous and atherosclerotic. The coronary arteries are atherosclerotic. The bones are diffusely osteopenic. Chronic-appearing healing and healed fracture deformities in the left first through sixth and right first and second ribs are seen. There is a healing right posterior 11th rib fracture in the region of costovertebral junction. Minimal dependent atelectasis is seen. Lumbar spine: L5 vertebral body is partially sacralized. There is mild T12-L1 retrolisthesis. There is dextrocurvature of the lumbar spine. No acute fracture in the vertebral bodies is seen. Advanced multilevel degenerative disc disease throughout the lumbar spine is seen, most prominent at T12-L1, through L2-L3. Mild central canal stenosis at L1-2 and L4-5 is present. Advanced bilateral L4-5 and L5-S1 facets osteoarthritis resulting in [id number]-[id number] bilateral neural foramina stenosis these levels. The bones are diffusely osteopenic. Procedure Note Jair John MD - 08/14/2017 EXAMINATION: 1. Computed tomography (CT) of the head without contrast. CT of the neckwith contrast was also performed. 2. CT of the cervical spine without contrast 3. CT of the thoracic spine without contrast 4. CT of the lumbar spine without contrast HISTORY: Headache, neck pain, back pain after fall. TECHNIQUE: CT of the head and cervical spine were performed withoutcontrast according to standard protocol. Reformatted axial, sagittal, andcoronal images of the thoracic and lumbar spine were obtained by thetechnologist from a concurrently performed body CT and sent to the workstation for review. Then CT angiography of theneck was obtained after the uneventful administration of 50 mL Zymrluolu828 intravenous contrast. Three dimensional postprocessing was performedby the technologist and sent to the workstation for review. FINDINGS: No prior study is available for comparison. Head: No acute intra- or extra-axial fluid collections are identified. There ismild cerebral volume loss with associated ex vacuo ventricular dilatation.The basilar cisterns are patent. No mass effect or midline shift is seen.The masterson-white matter differentiation is normal. Periventricular white matter hypoattenuation isindicative of chronic small vessel ischemic disease. There is vascularcalcification of the carotid siphons. Other than bilateral lensreplacements, the visualized portions of the orbits, paranasal sinuses, and mastoids appear normal. No acute fractureis identified. Angiographic findings: The aortic arch is tortuous. The configuration of the brachiocephalicvessels is typical. Other than bilateral tortuosity of the subclavianarteries, the innominate artery and both subclavian arteries appearnormal. There is atherosclerotic calcification of the carotid bifurcations, left greater than right, with no significantfocal stenosis. The common carotid arteries appear normal. The cervicalinternal carotid and vertebral arteries appear normal. Specifically thevertebral arteries demonstrate no definite evidence of traumatic injury or active contrast extravasation inthe region of foramen transversarium at C2. The visible portions of thedistal internal carotid artery appear atherosclerotic with no significantfocal stenosis. Cervical spine: There is grade 1 C7-T1 anterolisthesis. There is a type III odontoidfracture with minimal displacement extending through the bilateral foramentransversarium into the right pedicle of C2. The distance between thelateral mass of C2 and C1 as well as the distance between the occipital condyles and the lateral masses of C1 aremaintained. The craniocervical junction appears otherwise intact. There isreduced intervertebral disc space at multiple levels. Multileveldegenerative disc disease with ligamentum flavum hypertrophy contribute to mild central canal stenosis atC7-T1. Multilevel degenerative facet and uncovertebral jointosteoarthritis resulting in varying degrees of neuroforamina stenosis. Thoracic spine: There is mildly exaggerated thoracic kyphosis centered at T7-8. Mildthoracic scoliosis is also seen. Vertebral bodies are normal in heightwithout evidence of acute fracture. Degenerative disc disease in thethoracic spine is most prominent at T12-L1. Calcification of the ligamentum flavum is seen in multiple levels. Nocentral canal stenosis is seen. The facets appear normal. No neuralforaminal stenosis is seen. The aorta is tortuous and atherosclerotic. Thecoronary arteries are atherosclerotic. The bones are diffusely osteopenic. Chronic-appearing healing and healedfracture deformities in the left first through sixth and right first andsecond ribs are seen. There is a healing right posterior 11th rib fracturein the region of costovertebral junction. Minimal dependent atelectasis is seen. Lumbar spine: L5 vertebral body is partially sacralized. There is mild [id number]. There is dextrocurvature of the lumbar spine. No acutefracture in the vertebral bodies is seen. Advanced multileveldegenerative disc disease throughout the lumbar spine is seen, most prominent at T12-L1, through L2-L3. Mild central canalstenosis at L1- 2 and L4-5 is present. Advanced bilateral L4-5 and L5-D4usozhn osteoarthritis resulting in qexz-pi-gowzyrpk bilateral neuralforamina stenosis these levels. The bones are diffusely osteopenic. IMPRESSION IMPRESSION: 1. No acute intracranial process. 2. Mildly displaced fracture extending through the left foramentransversarium of C2 into the body of the C2 vertebral body resulting indisplacement of the base of the dens from the remainder C2 vertebral body,predominantly consistent with type III odontoid fracture. No angiographic evidence of traumatic arterial injuryof the vertebral arteries in this region is identified. 3. Multiple chronic appearing healing and healed bilateral cervicalfractures. No evidence of acute fracture in the thoracic, or lumbarspine. 4. Advanced multilevel degenerative disc and joint disease throughout thespine. This report was approved by Gurpreet Madrid M.D. on 10/17/2015 9:04 AM. IDr. YASSINE M.D. have personally reviewed and interpreted thisexamination/study. This report was electronically signed by YASSINE SIDDIQI M.D. on 10/17/201510:39 AM . Josy Sr MD CT ORDERABLES * CT HEAD WO CONTRAST (10/16/2015 10:30 PM CDT) Anatomical Region Laterality Modality Head Other Impressions 10/17/2015 10:39 AM CDT IMPRESSION: 1. No acute intracranial process. 2. Mildly displaced fracture extending through the left foramen transversarium of C2 into the body of the C2 vertebral body resulting in displacement of the base of the dens from the remainder C2 vertebral body, predominantly consistent with type III odontoid fracture. No angiographic evidence of traumatic arterial injury of the vertebral arteries in this region is identified. 3. Multiple chronic appearing healing and healed bilateral cervical fractures. No evidence of acute fracture in the thoracic, or lumbar spine. 4. 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 This report was approved by Gurpreet Madrid M.D. on 10/17/2015 9:04 AM . I, Dr. YASSINE SIDDIQI M.D. have personally reviewed and interpreted this examination/study. This report was electronically signed by YASSINE SIDDIQI M.D. on 10/17/2015 10:39 AM . Narrative 10/17/2015 10:39 AM CDT EXAMINATION: 1. Computed tomography (CT) of the head without contrast. CT of the neck with contrast was also performed. 2. CT of the cervical spine without contrast 3. CT of the thoracic spine without contrast 4. CT of the lumbar spine without contrast HISTORY: Headache, neck pain, back pain after fall. TECHNIQUE: CT of the head and cervical spine were performed without contrast according to standard protocol. Reformatted axial, sagittal, and coronal images of the thoracic and lumbar spine were obtained by the technologist from a concurrently performed body CT and sent to the workstation for review. Then CT angiography of the neck was obtained after the uneventful administration of 50 mL Omnipaque 350 intravenous contrast. Three dimensional postprocessing was performed by the technologist and sent to the workstation for review. FINDINGS: No prior study is available for comparison. Head: No acute intra- or extra-axial fluid collections are identified. There is mild cerebral volume loss with associated ex vacuo ventricular dilatation. The basilar cisterns are patent. No mass effect or midline shift is seen. The masterson-white matter differentiation is normal. Periventricular white matter hypoattenuation is indicative of chronic small vessel ischemic disease. There is vascular calcification of the carotid siphons. Other than bilateral lens replacements, the visualized portions of the orbits, paranasal sinuses, and mastoids appear normal. No acute fracture is identified. Angiographic findings: The aortic arch is tortuous. The configuration of the brachiocephalic vessels is typical. Other than bilateral tortuosity of the subclavian arteries, the innominate artery and both subclavian arteries appear normal. There is atherosclerotic calcification of the carotid bifurcations, left greater than right, with no significant focal stenosis. The common carotid arteries appear normal. The cervical internal carotid and vertebral arteries appear normal. Specifically the vertebral arteries demonstrate no definite evidence of traumatic injury or active contrast extravasation in the region of foramen transversarium at C2. The visible portions of the distal internal carotid artery appear atherosclerotic with no significant focal stenosis. Cervical spine: There is grade 1 C7-T1 anterolisthesis. There is a type III odontoid fracture with minimal displacement extending through the bilateral foramen transversarium into the right pedicle of C2. The distance between the lateral mass of C2 and C1 as well as the distance between the occipital condyles and the lateral masses of C1 are maintained. The craniocervical junction appears otherwise intact. There is reduced intervertebral disc space at multiple levels. Multilevel degenerative disc disease with ligamentum flavum hypertrophy contribute to mild central canal stenosis at C7- T1. Multilevel degenerative facet and uncovertebral joint osteoarthritis resulting in varying degrees of neuroforamina stenosis. Thoracic spine: There is mildly exaggerated thoracic kyphosis centered at T7-8. Mild thoracic scoliosis is also seen. Vertebral bodies are normal in height without evidence of acute fracture. Degenerative disc disease in the thoracic spine is most prominent at T12-L1. Calcification of the ligamentum flavum is seen in multiple levels. No central canal stenosis is seen. The facets appear normal. No neural foraminal stenosis is seen. The aorta is tortuous and atherosclerotic. The coronary arteries are atherosclerotic. The bones are diffusely osteopenic. Chronic-appearing healing and healed fracture deformities in the left first through sixth and right first and second ribs are seen. There is a healing right posterior 11th rib fracture in the region of costovertebral junction. Minimal dependent atelectasis is seen. Lumbar spine: L5 vertebral body is partially sacralized. There is mild T12-L1 retrolisthesis. There is dextrocurvature of the lumbar spine. No acute fracture in the vertebral bodies is seen. Advanced multilevel degenerative disc disease throughout the lumbar spine is seen, most prominent at T12-L1, through L2-L3. Mild central canal stenosis at L1-2 and L4-5 is present. Advanced bilateral L4-5 and L5-S1 facets osteoarthritis resulting in [id number]-[id number] bilateral neural foramina stenosis these levels. The bones are diffusely osteopenic. Procedure Note Jair John MD - 08/14/2017 EXAMINATION: 1. Computed tomography (CT) of the head without contrast. CT of the neckwith contrast was also performed. 2. CT of the cervical spine without contrast 3. CT of the thoracic spine without contrast 4. CT of the lumbar spine without contrast HISTORY: Headache, neck pain, back pain after fall. TECHNIQUE: CT of the head and cervical spine were performed withoutcontrast according to standard protocol. Reformatted axial, sagittal, andcoronal images of the thoracic and lumbar spine were obtained by thetechnologist from a concurrently performed body CT and sent to the workstation for review. Then CT angiography of theneck was obtained after the uneventful administration of 50 mL [id number] intravenous contrast. Three dimensional postprocessing was performedby the technologist and sent to the workstation for review. FINDINGS: No prior study is available for comparison. Head: No acute intra- or extra-axial fluid collections are identified. There ismild cerebral volume loss with associated ex vacuo ventricular dilatation.The basilar cisterns are patent. No mass effect or midline shift is seen.The masterson-white matter differentiation is normal. Periventricular white matter hypoattenuation isindicative of chronic small vessel ischemic disease. There is vascularcalcification of the carotid siphons. Other than bilateral lensreplacements, the visualized portions of the orbits, paranasal sinuses, and mastoids appear normal. No acute fractureis identified. Angiographic findings: The aortic arch is tortuous. The configuration of the brachiocephalicvessels is typical. Other than bilateral tortuosity of the subclavianarteries, the innominate artery and both subclavian arteries appearnormal. There is atherosclerotic calcification of the carotid bifurcations, left greater than right, with no significantfocal stenosis. The common carotid arteries appear normal. The cervicalinternal carotid and vertebral arteries appear normal. Specifically thevertebral arteries demonstrate no definite evidence of traumatic injury or active contrast extravasation inthe region of foramen transversarium at C2. The visible portions of thedistal internal carotid artery appear atherosclerotic with no significantfocal stenosis. Cervical spine: There is grade 1 C7-T1 anterolisthesis. There is a type III odontoidfracture with minimal displacement extending through the bilateral foramentransversarium into the right pedicle of C2. The distance between thelateral mass of C2 and C1 as well as the distance between the occipital condyles and the lateral masses of C1 aremaintained. The craniocervical junction appears otherwise intact. There isreduced intervertebral disc space at multiple levels. Multileveldegenerative disc disease with ligamentum flavum hypertrophy contribute to mild central canal stenosis atC7-T1. Multilevel degenerative facet and uncovertebral jointosteoarthritis resulting in varying degrees of neuroforamina stenosis. Thoracic spine: There is mildly exaggerated thoracic kyphosis centered at T7-8. Mildthoracic scoliosis is also seen. Vertebral bodies are normal in heightwithout evidence of acute fracture. Degenerative disc disease in thethoracic spine is most prominent at T12-L1. Calcification of the ligamentum flavum is seen in multiple levels. Nocentral canal stenosis is seen. The facets appear normal. No neuralforaminal stenosis is seen. The aorta is tortuous and atherosclerotic. Thecoronary arteries are atherosclerotic. The bones are diffusely osteopenic. Chronic-appearing healing and healedfracture deformities in the left first through sixth and right first andsecond ribs are seen. There is a healing right posterior 11th rib fracturein the region of costovertebral junction. Minimal dependent atelectasis is seen. Lumbar spine: L5 vertebral body is partially sacralized. There is mild [id number]. There is dextrocurvature of the lumbar spine. No acutefracture in the vertebral bodies is seen. Advanced multileveldegenerative disc disease throughout the lumbar spine is seen, most prominent at T12-L1, through L2-L3. Mild central canalstenosis at L1- 2 and L4-5 is present. Advanced bilateral L4-5 and L5-N1sbenhb osteoarthritis resulting in [id number]-qj-mwbsujdo bilateral neuralforamina stenosis these levels. The bones are diffusely osteopenic. IMPRESSION IMPRESSION: 1. No acute intracranial process. 2. Mildly displaced fracture extending through the left foramentransversarium of C2 into the body of the C2 vertebral body resulting indisplacement of the base of the dens from the remainder C2 vertebral body,predominantly consistent with type III odontoid fracture. No angiographic evidence of traumatic arterial injuryof the vertebral arteries in this region is identified. 3. Multiple chronic appearing healing and healed bilateral cervicalfractures. No evidence of acute fracture in the thoracic, or lumbarspine. 4. Advanced multilevel degenerative disc and joint disease throughout thespine. This report was approved by Gurpreet Madrid M.D. on 10/17/2015 9:04 AM. I, Dr. YASSINE SIDDIQI M.D. have personally reviewed and interpreted thisexamination/study. This report was electronically signed by YASSINE SIDDIQI M.D. on 10/17/201510:39 AM . Josy Sr MD CT ORDERABLES * PTT U (10/16/2015 10:09 PM CDT) APTT 28.8 23.0 - 38.4 Seconds [facility] Comment:Suggested therapeuti c range for full dose I.V. heparin therapy for venous thromboembolism is 66.0-91.0 seconds. Blood specimen (specimen) BLOOD SPECIMEN / Unknown 10/16/2015 10:09 PM CDT 10/16/2015 10:13 PM CDT Narrative [facility] - 10/16/2015 10:27 PM CDT Is patient on Heparin, Argatroban or Dabigatran?->N Josy Sr MD LAB - COAGULATION OR DERABLES [address] [phone] * PT-INR U (10/16/2015 10:09 PM CDT) PT 13.1 12.1 - 14.8 Seconds [facility] INR 1.0 See Comment [facility] Comment: Suggested therapeutic range for low-intensity coumadin therapy for venous thromboembolism prophylaxis is an INR of 2.0-3.0. For high risk patients (Mitral Valve Prosthesis, Atrial Fibrillation, history of TIA/stroke), suggested prophylactic therapeutic range is an INR of 2.5-3.5. Blood specimen (specimen) BLOOD SPECIMEN / Unknown 10/16/2015 10:09 PM CDT 10/16/2015 10:13 PM CDT Narrative [facility] - 10/16/2015 10:26 PM CDT Is patient on Heparin, Argatroban or Dabigatran?->N Josy Sr MD LAB - COAGULATION OR DERABLES Performing Organization Address City/[facility]/ZIP Co de Phone Number [address] [phone] * TYPE + SCREEN PANEL (10/16/2015 10:09 PM CDT) Typem B POS [facility] Antibody Screen NEG [facility] Blood specimen (specimen) BLOOD SPECIMEN / Unknown 10/16/2015 10:09 PM CDT 10/16/2015 10:17 PM CDT Josy Sr MD LAB - BLOOD BANK ORD ERABLES Performing Organization Address [facility] Co de Phone Number [facility] [address] [place] [address] * (ABNORMAL) HEPATIC FUNCTION PANEL (10/16/2015 10:09 PM CDT) Protein Total 7.8 6.0 - 8.3 g/dL [facility] Albumin 4.1 3.4 - 5.0 g/dL [facility] Bilirubin Total 0.5 0.2 - 1.2 mg/dL [facility] Bilirubin Conjugated 0.2 0.0 - 0.5 mg/dL [facility] Bilirubin Unconjugated 0.3 Unconjugated Bilirubin is a calculated value: Reference ranges have not been established. mg/dL [facility] Alkaline Phosphatase 97 40 - 150 Units/L [facility] ALT 31 0 - 55 Units/L [facility] AST 47(H) 5 - 34 Units/L [facility] Albumin/Globulin Ratio 1.1 1.1 - 2.3 [facility] Blood specimen (specimen) BLOOD SPECIMEN / Unknown 10/16/2015 10:09 PM CDT 10/16/2015 10:13 PM CDT Josy Sr MD LAB - CHEMISTRY ORDE RABWADE [address] [phone] * LACTIC ACID BLOOD (10/16/2015 10:09 PM CDT) Lactic Acid-Stat 0.8 0.5 - 2.2 mmol/L [facility] Blood specimen (specimen) BLOOD SPECIMEN / Unknown 10/16/2015 10:09 PM CDT 10/16/2015 10:13 PM CDT Josy Sr MD LAB - CHEMISTRY LINO LEÓN Performing Organization Address [facility] Co de Phone Number [address] [phone] * ALCOHOL ETHYL BLOOD (10/16/2015 10:09 PM CDT) Pathologist [facility] Interpretation Ethanol None Detected None Detected mg/dL [facility] Comment:Ethanol levels less than 10 mg/dL are resulted as None detected . Blood specimen (specimen) BLOOD SPECIMEN / Unknown 10/16/2015 10:09 PM CDT 10/16/2015 10:13 PM CDT Josy Sr MD LAB - CHEMISTRY LINO LEÓN Performing Organization Address [facility] Co de Phone Number [address] [phone] * XR CHEST 1VW PORTABLE (10/16/2015 10:02 PM CDT) Anatomical Region Laterality Modality Chest Other Impressions 10/17/2015 9:41 AM CDT Impression: No acute pulmonary process. Dictated by David Jose MD I, Dr. SAWYER BRIGGS MD have personally reviewed and interpreted this examination/study. This report was electronically signed by SAWYER BRIGGS MD on 10/17/2015 9:41 AM . Narrative 10/17/2015 9:41 AM CDT Exam: PX CHEST 1 VW Date: 10/16/2015 10:07 PM History: fall Comparison: CT chest, abdomen, and pelvis 10/16/2015 Findings: There is no focal consolidation, pleural effusion, or pneumothorax. The cardiac silhouette is normal. The aorta is tortuous and atherosclerotic. Right rib fractures described on the concurrent CT are not well visualized radiographically. Degenerative changes of the shoulders are seen. Procedure Note Sawyer Briggs MD - 08/14/2017 Exam: PX CHEST 1 VW Date: 10/16/2015 10:07 PM History: fall Comparison: CT chest, abdomen, and pelvis 10/16/2015 Findings: There is no focal consolidation, pleural effusion, or pneumothorax. Thecardiac silhouette is normal. The aorta is tortuous and atherosclerotic.Right rib fractures described on the concurrent CT are not well visualizedradiographically. Degenerative changes of the shoulders are seen. IMPRESSION Impression: No acute pulmonary process. Dictated by David Jose MD I, Dr. SAWYER BRIGGS MD have personally reviewed and interpreted thisexamination/study. This report was electronically signed by SAWYER BRIGGS MD on 10/17/20159:41 AM . Josy Sr MD DIAGNOSTIC IMAGING O RDERABLES * EKG 12-LEAD (10/16/2015 12:00 AM CDT) EKG [facility] Comment: Exam Date/Time: Oct 16 2015 23:34:51 Test Reason : trauma Blood Pressure : / mmHG Vent. Rate : 059 BPM Atrial Rate : 059 BPM P-R Int : 192 ms QRS Dur : 086 ms QT Int : 456 ms P-R-T Axes : -22 012 018 degrees QTc Int : 451 ms Sinus bradycardia Otherwise normal ECG No previous ECGs available Confirmed by AMAYA HOGAN P [id number]), advertising editor Alex Nunes ([id number]) on 10/24/2015 9:08:50 AM Referred By: REFERRING NO Confirmed By:Lm CONDE MD 10/16/2015 Josy Sr MD ECG ORDERABLES [facility] Care Teams Retail Route Supervisor Relationship Specialty Start Date End Date Garland Bella DO [facility] - General 10/17/15
--- OUTSIDE RECORDS SUMMARY | 2024-07-08 12:24 | XMS_ITS | Clinical Summary ---
Author Organization [facility] Address [address] [place] [address] Care Team Providers Care Oven Dauber Name Role Phone None, Provider MD Primary Care Provider Unavaila ble Allergies Active Allergy Reactions Criticality Noted Date Comments Temazepam Rash,Hives Medium 10/16/2015 Medications clonazePAM 0.5 MG tablet Take 0.5 mg by mouth nightly as needed. 0 Active alendronate 70 MG tablet Take 70 mg by mouth every 7 days. wednesday Active amLODIPine 5 MG tablet Take 5 mg by mouth daily. Active cycloSPORINE (RESTASIS) 0.05 % ophthalmic emulsion Place 1 drop into both eyes every 12 (twelve) hours. Active levothyroxine (EUTHYROX) 88 MCG tablet Take 88 mcg by mouth every morning. Active lovastatin 10 MG tablet Take 10 mg by mouth every morning. Active meloxicam 7.5 MG tablet Take 7.5 mg by mouth daily. Active sertraline 100 MG tablet Take 100 mg by mouth daily. Active traZODone 100 MG tablet Take 100 mg by mouth nightly at bedtime. Active vitamin D3, cholecalciferol , 1000 UNIT Tab tablet Take 1,000 Units by mouth daily. Active vitamin C 1000 MG tablet Take 1,000 mg by mouth daily. Active oyster shell calcium 500 mg, elemental, 500 MG tablet Take 1 tablet by mouth daily. Active Mousie-3 Fatty Acids (FISH OIL BURP-LESS) 1000 MG Cap Take 1,000 mg by mouth every morning. Active bimatoprost 0.01 % Solution Place 1 drop into both eyes nightly at bedtime. Active Social History Tobacco Use Types Packs/Day Years Used Date Smoking Tobacco: Never Assessed Comments No Sex and Gender Information Value Date Recorded Sex Assigned at Not on file Legal Sex Female 1:57 PM CDT Gender Identity Not on file Sexual Orientation Not on file Last Filed Vital Signs Vital Sign Reading Time Taken Comments Blood Pressure 167/92 11/23/2020 7:00 PM CDT Pulse 64 11/23/2020 7:00 PM CDT Temperature 36.9 C (98.4 F) 11/23/2020 2:00 PM CDT Respiratory Rate 23 11/23/2020 7:00 PM CDT Oxygen Saturation 92% 11/23/2020 7:00 PM CDT Inhaled Oxygen Concentration - - Weight 43.1 kg (95 lb) 11/23/2020 2:00 PM CDT Height 137.2 cm (4' 6 ) 11/23/2020 2:00 PM CDT Body Mass Index 22.91 11/23/2020 2:00 PM CDT Plan of Treatment Health Maintenance Due Date Last Done Comments DTaP, Tdap and Td Vaccines ( 1 - Tdap) 1959 Annual Medicare Wellness Visit 2003 Pneumococcal Vaccine: 65+ Years (1 of 1 - PCV) 2003 RSV Immunization or 60+ Years (1 - 1-dose 75+ series) 2013 COVID-19 Vaccine (3 - 2023-2 5 season) 2024 08/02/2020, 07/05/2020 Influenza Adult (#1) 2024 Zoster Vaccines Completed 11/16/2018, 08/31/2018 Meningococcal B Vaccine Aged Out No l onger eligible based on patient's age to complete this topic Meningococcal Vaccine Aged Out No gerry katherine eligible based on patient's age to complete this topic RSV Immunizations Under 20 Months Aged Out No longer eligible b ased on patient's age to complete this topic Insurance [employer] Member Subscriber Plan / Payer (Ef fective 2020-Present) Name:Kamilla Crespo Member ID:[id number] Relation to Subscriber:Self Name:Kamilla Crespo Subscriber ID:[id number] Payer ID:Not on file Group ID:Not on file Type:Not on file Address: [address] [place] [address] [facility] MEDICARE Care Teams Oven Dauber Relationship Specialty Start Date End Date None, Provider, PCP - General 11/23/20
[2024-07-08 13:05] LABS: Basophils Percent Auto 0.5 % (0.2-1.2); Eosinophils Absolute Auto 0.1 K/mm3 (0-0.3); Eosinophils Percent Auto 1.4 % (0-4.4); Hematocrit 43.5 % (37.0-47.0); Hemoglobin 14.6 g/dL (12.0-15.0); Immature Granulocyte Absolute 0.02 K/mm3 (0.00-0.031); Immature Granulocyte Percent A 0.3 % (0-0.5); Lymphocytes Absolute Auto 2.16 K/mm3 (0.9-3.2); Lymphocytes Percent Auto 27.3 % (18.3-44.2); Mean Corpuscular HGB Conc 33.6 g/dl (32-36); Mean Corpuscular Volume 95.4 fl (80-100); Mean Platelet Volume 10.4 fl (7.4-10.4); Monocytes Absolute Auto 0.5 K/mm3 (0.1-0.6); Monocytes Percent Auto 6.4 % (2.6-8.5); Neutrophils Absolute Auto 5.1 K/mm3 (1.3-6.7); Neutrophils Percent Auto 64.1 % (45.5-73.1); Platelet Count Result 162 k/mm3 (150-375); Red Blood Count 4.56 M/mm3 (4.2-5.4); White Blood Count 7.9 K/mm3 (4.5-10.0)
[2024-07-08 13:14] LABS: Alanine Aminotransferase 18 U/L (6-35); Albumin Level 4.8 g/dL (3.5-5.1); Alkaline Phosphatase 124 U/L (38-126); Anion Gap 14 mmol/L (4-12); Aspartate Amino Transferase 35 U/L (14-36); Bilirubin,Total 0.6 mg/dL (0.2-1.3); Blood Urea Nitrogen 27 mg/dL (7-17); Calcium 10.4 mg/dL (8.4-10.2); Carbon Dioxide 26 mmol/L (22-30); Chloride 103 mmol/L (98-107); Estimated Glomerular Filt Rate > 60; Glucose 93 mg/dL (65-110); Potassium 3.8 mmol/L (3.4-5.0); Sodium 143 mmol/L (137-145)
[2024-07-08 13:35] LABS: Free T4 Free Thyroxine 1.46 ng/dL (0.78-2.19)
== END 2024-07-08 12:21 | disposition home or self-care (01) ==
PROVIDERS: PCP Family Medicine; Visit Provider Physician Assistant
DX: E78.2 Mixed hyperlipidemia (principal); E03.9 Hypothyroidism, unspecified; E07.9 Disorder of thyroid, unspecified
CPT/HCPCS: 36415; 80053; 84439; 84443; 85025